=== PATIENT | female | born 1950 | race Caucasian/White ===

== ENCOUNTER → 2016-12-22 | Outpatient (CLI) | payer BC ==
[~2016-12-22] MED LIST: ASPEC81 PO; CLB200 PO; FENO48TA9 PO; FINA5TAB PO; GLC500 PO; MOME50SP5; NIAC250T8 PO; OLOP0.1S2 OP; PANT40TA PO; SERT50TA PO; SIMV40TA2 PO; SYN100 PO
--- NOTE | 2016-12-22 07:58 | DIAGNOSTIC IMAGING REPORT ---
ABDOMINAL ULTRASOUND, RIGHT UPPER QUADRANT HISTORY: Pain. Nausea. RUQ PAIN, DYSPEPSIA. COMPARISON: None. FINDINGS: Pancreas: The pancreas demonstrates a normal echotexture. Liver: Mild fatty infiltration Gallbladder: No gallbladder wall thickening. No gallstones. CBD: 4 mm Right kidney: No hydronephrosis. IMPRESSION: Mild fatty infiltration of liver. Otherwise negative study Electronically signed by: Rojelio Hallman M.D. 12/22/2016 7:56 AM Dictated Date/Time: 12/22/2016 7:56 AM
== END | disposition home or self-care (01) ==
LOC: C.ULTRBC 07:15
PROVIDERS: ATTEND Family Medicine
DX: R10.13 Epigastric pain (principal); R10.11 Right upper quadrant pain

== ENCOUNTER → 2017-01-12 | Outpatient (CLI) | payer BC ==
--- NOTE | 2017-01-12 15:30 | DIAGNOSTIC IMAGING REPORT ---
RIGHT KNEE 2 VIEWS CLINICAL HISTORY: Right knee pain and swelling. FINDINGS: AP and lateral views of the right knee are compared to study dated 08/05/2008. The skeletal structures are osteopenic. No fracture is seen. There is mild to moderate tricompartmental degenerative joint space narrowing, greatest at the patellofemoral articulation. There is degenerative beaking of the tibial spine and lateral marginal osteophytes. There are also tiny patellar enthesophytes. A joint effusion is identified. Mild soft tissue swelling is present around the knee. IMPRESSION: 1. Mild soft tissue swelling and joint effusion. No acute bony abnormality is seen. 2. Osteopenia and degenerative change as above. Electronically signed by: Juan C Limon M.D. 01/12/2017 3:29 PM Dictated Date/Time: 01/12/2017 3:27 PM
== END | disposition home or self-care (01) ==
LOC: C.RADBC 15:04
PROVIDERS: ATTEND Family Medicine
DX: M25.561 Pain in right knee (principal); M25.461 Effusion, right knee; M85.861 Other specified disorders of bone density and structure, right lower leg

== ENCOUNTER → 2017-03-06 | Outpatient (CLI) | payer BC ==
--- NOTE | 2017-03-06 14:55 | MAMMOGRAPHY REPORT ---
BILATERAL DIGITAL SCREENING MAMMOGRAM WITH CAD: 03/06/2017 CLINICAL HISTORY: Routine screening. Patient has no complaints. TECHNIQUE: Bilateral CC and MLO views were obtained. Current study was also evaluated with a Compute r Aided Detection (CAD) system. COMPARISON: Comparison is made to exams dated: 03/03/2016 mammogram, 03/02/2015 mammogram, 02/27/2014 m ammogram, 02/18/2013 mammogram, 01/23/2012 mammogram, and 07/27/2011 mammogram - [facility] ter. BREAST COMPOSITION: The tissue of both breasts is heterogeneously dense, which may obscure small mas ses. FINDINGS: The parenchymal pattern is unchanged. There are a few scattered stable benign-appearing m icrocalcifications and benign rim calcifications in the breasts. No developing mass, architectural d istortion or cluster of suspicious microcalcifications is seen in either breast. IMPRESSION: ACR BI-RADS CATEGORY 2: BENIGN There is no mammographic evidence of malignancy. A 1 year screening mammogram is recommended. The pa tient will receive written notification of the results. Approximately 10% of breast cancers are not detected with mammography. A negative mammographic report should not delay biopsy if a clinically suggestive mass is present. Itzel Dobbins M.D. ay/:03/06/2017 11:59:03 Hands Assembler: Jeannie Berumen, [facility] letter sent: Normal 1/2 BI-RADS Code: ACR BI-RADS Category 2: Benign
== END | disposition home or self-care (01) ==
LOC: C.MAMM 11:38
PROVIDERS: ATTEND Obstetrics & Gynecology
DX: Z12.31 Encounter for screening mammogram for malignant neoplasm of breast (principal)

== ENCOUNTER → 2017-07-04 | Outpatient (CLI) | payer BC ==
[~2017-07-04] MED LIST changes: +OPTIRAY 320 IV PRN
[2017-07-04 17:59] LABS: ISTAT CREATININE 0.8 mg/dl (0.6-1.3); ISTAT IONIZED CALCIUM 1.01 mmol/l (1.12-1.32)
--- NOTE | 2017-07-04 19:44 | DIAGNOSTIC IMAGING REPORT ---
ABD/PELVIS IV AND ORAL CONT HISTORY: 66 years-old Female RLQ PAIN acute right lower quadrant abdominal pain. Initial exam. COMPARISON: CT 04/06/2012 TECHNIQUE: Multiple axial CT images of the abdomen and pelvis were obtained following the intravenous administration of 116 mL Optiray 320. Oral contrast also administered. A dose lowering technique was used consistent with the principals of SIS. FINDINGS: Mild subsegmental bibasilar atelectasis. No pneumoperitoneum then at 5. Imaged inferior cardiac chambers are mildly enlarged. The liver, spleen, pancreas and adrenal glands are within normal limits. Low attenuating lesions of the bilateral kidneys are again seen suggesting cysts, largest of which measures 1.9 cm on the left. Findings appear unchanged. No renal calculi or hydronephrosis. The ureters, urinary bladder, uterus and adnexa are unremarkable. No significant free pelvic fluid. There is mild mixed plaquing of the abdominal aorta. No bulky retroperitoneal adenopathy. There is no bowel obstruction. Small duodenal diverticulum. A few scattered colonic diverticula are noted without CT evidence of acute diverticulitis. The appendix is tortuous within the abdominal right lower quadrant and is partially air and contrast-filled without inflammatory changes to suggest acute appendicitis. Small fat filled periumbilical hernia, diastases 1.6 cm. Bones appear intact. Facet arthropathy of the lower lumbar spine. IMPRESSION: 1. No acute intra-abdominal or intrapelvic abnormality identified, specifically no evidence of acute appendicitis. 2. Colonic diverticulosis without diverticulitis. 3. Additional incidental findings as above. The above report was generated using voice recognition software. It may contain grammatical, syntax or spelling errors. Electronically signed by: Miguelito Grossman M.D. 07/04/2017 7:43 PM Dictated Date/Time: 07/04/2017 7:35 PM
== END | disposition home or self-care (01) ==
LOC: C.CTS 17:05
PROVIDERS: ATTEND Family Medicine
DX: K57.30 Diverticulosis of large intestine without perforation or abscess without bleeding (principal)

== ENCOUNTER → 2017-08-02 | Outpatient (CLI) | payer BC ==
[~2017-08-02] MED LIST changes: -OPTIRAY 320 IV PRN
== END | disposition home or self-care (01) ==
LOC: C.PAPS 10:28
PROVIDERS: ATTEND Obstetrics & Gynecology
DX: Z01.419 Encounter for gynecological examination (general) (routine) without abnormal findings (principal)

== ENCOUNTER → 2017-10-02 | Outpatient (CLI) | payer OTHER ==
[2017-10-02 17:01] LABS: BASO % 0.5 %; BASO ABS # 0.04 K/uL (0-0.2); EOS % 1.6 %; EOS ABS # 0.12 K/uL (0-0.5); HEMOGLOBIN 12.8 g/dL (12.0-16.0); IG# 0.01 K/uL (0.00-0.02); LYMPH % 38.3 %; LYMPH ABS # 2.81 K/uL (1.2-3.4); MEAN CELL VOLUME 89.2 fL (80-100); MEAN CORPUSCULAR HGB CONC 33.7 g/dl (32-36); MEAN PLATELET VOLUME 12.9 fL (7.4-10.4); MONO % 8.7 %; MONO ABS # 0.64 K/uL (0.11-0.59); NEUT % 50.8 %; NEUT ABS # 3.72 K/uL (1.4-6.5); PLATELET COUNT 247 K/uL (130-400); RED CELL DISTRIBUTION WIDTH CV 13.5 % (11.5-14.5); WHITE BLOOD COUNT 7.34 K/uL (4.8-10.8)
[2017-10-02 17:21] LABS: ALBUMIN 3.9 gm/dl (3.4-5.0); ALT/SGPT 38 U/L (12-78); AST/SGOT 30 U/L (15-37); BLOOD UREA NITROGEN 13 mg/dl (7-18); CALCIUM 9.6 mg/dl (8.5-10.1); CARBON DIOXIDE 28 mmol/L (21-32); CHOLESTEROL 165 mg/dl (0-200); CREATININE 0.67 mg/dl (0.60-1.20); GLUCOSE 94 mg/dl (70-99); POTASSIUM 4.4 mmol/L (3.5-5.1); SODIUM 139 mmol/L (136-145); URIC ACID 5.1 mg/dl (2.6-7.2)
[2017-10-02 17:28] LABS: HEMOGLOBIN A1C 5.9 % (4.5-5.6)
[2017-10-02 17:29] LABS: ALKALINE PHOSPHATASE 105 U/L (45-117); LDL CHOLESTEROL CALCULATED 92 mg/dl; TOTAL PROTEIN 7.6 gm/dl (6.4-8.2); TRANSFERRIN 296 mg/dl (200-360)
== END | disposition home or self-care (01) ==
LOC: C.LABBC 12:58
PROVIDERS: ATTEND Family Medicine
DX: E88.81 Metabolic syndrome and other insulin resistance (principal); E55.9 Vitamin D deficiency, unspecified; D51.9 Vitamin B12 deficiency anemia, unspecified; E78.9 Disorder of lipoprotein metabolism, unspecified; R53.83 Other fatigue

== ENCOUNTER 2025-08-12 17:46 | Observation (INO) ==
--- NOTE | 2025-08-12 18:24 | Emergency Department Note ---
Impression & Plan Weakness, Elevated troponin, Palpitations, SOB (shortness of breath), CHF (congestive heart failure) ED Provider Note NAME: SATHISH BALL AGE: 75 SEX: F : 1950 ARRIVES VIA: Walk-In INFORMANT: [Patient] ED PROVIDER(S): [Juan C Jaeger MD] CHIEF COMPLAINT: Abnormal outpatient testing HISTORY OF PRESENT ILLNESS: The patient is a 75-year-old female who states that she has a history of intermittent atrial fibrillation. She is on Eliquis. She has been having episodes over the last week or so where her heart has been racing and, the episodes are becoming more frequent. When they occur, she feels sweaty, dizzy and has some mild discomfort across the chest. She has felt short of breath lately as well especially with stairs. She has been nauseated and has been feeling dizzy. She is quite fatigued. The patient saw cardiology last week and had her metoprolol changed to a long- acting dose. She states that today, she saw her family doctor's office and had outpatient laboratory work done. She was told that she was in heart failure, had an elevated troponin and elevated BNP. She was referred to the hospital. Laboratory work today outpatient showed a white count of 9.5. A hemoglobin of 11.6. A platelet count of 189. D-dimer was normal at 400. There was no renal failure or significant electrolyte abnormality. No concerning liver enzyme elevation. Troponin was elevated at 49.4. BNP was elevated at 478. TSH was normal. Chest x-ray was read showing heart failure. PMHx/PSHx/Social Hx: See Below PHYSICAL EXAM: GENERAL: Patient is in no acute distress. HEENT: No acute trauma, normocephalic atraumatic, mucous membranes moist, no nasal congestion. NECK: No stridor, no adenopathy, no meningismus, trachea is midline. LUNGS: Few scattered crackles heard at the right base. No respiratory distress or wheezing. HEART: Subtle systolic murmur heard best at the right sternal border. Regular rate and rhythm. ABDOMEN: Soft, nontender, no peritonitis. EXTREMITIES: No cyanosis, full range of motion of all the joints without pain or difficulty. NEUROLOGIC: Oriented x 3, no acute motor or sensory deficits, no focal weakness. SKIN: No jaundice, no diaphoresis. DIFFERENTIAL DIAGNOSIS: MN, dysrhythmia, CHF, electrolyte imbalance, renal or liver failure, among others. EMERGENCY DEPARTMENT PROCEDURES: MEDICAL DECISION MAKING: I did review the laboratory work that was performed outpatient earlier--these tests are noted in the above history section. There was no concerning anemia. D-dimer was normal making PE less likely. There was no renal failure or significant electrolyte abnormality. No worrisome liver enzyme elevation. BNP was elevated at over 400 consistent with fluid overload and heart failure. Troponin was mildly elevated consistent with cardiac injury/strain. TSH was normal. The chest x-ray did show moderate heart failure. Additional testing was done here in the ED. Repeat troponin did show a slight rise to 55.3. Her magnesium returned normal. ECG showed a normal sinus rhythm with LVH. No ST elevation. Given the patient's palpitations, her dyspnea, her fatigue, the new findings of heart failure and the elevated troponin, admission is warranted. I did order for IV Lasix 40 mg. This should help with diuresis. I spoke with the patient at length, I spoke with case management, the on-call hospitalist was consulted. Prior/Outside records/notes reviewed: None ECG per my interpretation: Indication was palpitations and shortness of b reath. The ECG shows a normal sinus rhythm with a rate of 80. LVH is present. There are some inverted T waves seen in the lateral leads. There is no ST elevation, no PVCs. The QTc is 426. Continuous Cardiac Monitoring per my interpretation: An order was placed for continuous cardiac monitoring. The monitor shows a rate of 82 with normal sinus rhythm. Imaging/x-ray results per my interpretation: Chest x-ray from earlier today shows some mild cardiomegaly as well as moderate CHF. No pneumonia. Chronic Medical/Social conditions affecting care: Advanced age. Care/Management discussed with: Case management and the on-call hospitalist. Level of care consideration(s): After review of the information above and other included data: --I believe the patient requires escalation of care to admission DISPOSITION: Admission Past Med/Surg History Problem List CHF (congestive heart failure) (Acute) SOB (shortness of breath) (Acute) Palpitations (Acute) Elevated troponin (Acute) Weakness (Acute) Cardiomyopathy Ingrowing toenail of right foot Ingrowing left great toenail Posterior tibial tendon dysfunction (PTTD) of both lower extremities Pes planus of both feet Myalgia Spinal stenosis of cervical region Cervical disc disease Metatarsalgia Paroxysmal atrial fibrillation Shoulder pain Hypertrophic cardiomyopathy Encounter for interrogation of cardiac recorder Impaired glucose tolerance GERD (gastroesophageal reflux disease) Radicular pain of upper extremity Elevated troponin Diabetes Tachycardia Cervical radiculopathy Bilateral shoulder pain Alopecia Rotator cuff arthropathy UTI (urinary tract infection) Paresthesia and pain of both upper extremities Arthralgia Postmenopausal syndrome Arthritis of hand Low vitamin B12 level CMC arthritis Tendinitis of left rotator cuff Dysphagia Synovitis and tenosynovitis Iliotibial band syndrome, right leg Left rotator cuff tear Arthritis Fatty liver GERD (gastroesophageal reflux disease) Hypothyroidism Hypercholesterolemia Mitral regurgitation Hypertension Apical variant hypertrophic cardiomyopathy Back pain Medical History Diverticulitis Eustachian tube dysfunction Bronchitis Diverticulitis large intestine Left ventricular hypertrophy Mammogram abnormal Anemia Abnormal EKG Surgical History History of adenoidectomy H/O tubal ligation S/P tonsillectomy H/O: hysterectomy H/O bilateral salpingo-oophorectomy Hx of cataract surgery Family History Aunt Colorectal cancer Ovarian cancer Father Colorectal cancer Sister Breast cancer Uterine cancer Father Bladder cancer Denies family history of Prostate cancer Dyslipidemia Myocardial infarction Lung cancer Hypertension Social History Smoking Status: Never smoker Second Hand Exposure: No; Do You Dip or Chew Tobacco: No; Tobacco Cessation Education Requested by Patient: No Hx Alcohol Use: No Hx Substance Use: No Preferred Language: Tamaz[place] Communication Ability: Effective Visual Impairment: No Limitations Hearing Ability: Normal Academic Intern Required: No Beliefs That Will Affect Care: None marital status: Current Living Situation: Spouse current occupational status: other current occupation: homemaker Other Information That Helps Us Care for You: No Feels Safe at Home: Yes Safety Concerns: Feels Safe At This Time Dental Care, Regularly: Yes Physical Activity Frequency: 3-4 Times per Week Seatbelt Use: always Assistive Devices: Glasses Allergies Allergies Allergy/AdvReac Type Severity Reaction Status Date / Time fexofenadine Allergy Mild INSOMNIA Verified 08/12/25 09:41 prednisone Allergy Unknown UNKNOWN Verified 08/12/25 09:41 rofecoxib Allergy Unknown UNKNOWN Verified 08/12/25 09:41 polyethylene glycol 3350 AdvReac Unknown Abdominal Verified 08/12/25 09:41 [From Miralax] Pain empagliflozin AdvReac Dizziness Verified 08/12/25 09:41 [From Jardiance] Home Meds Home Medications Medication Instructions Recorded Confirmed coQ10 (ubiquinol) 100 mg capsule 100 mg PO DAILY 12/29/21 08/12/25 Lactobacillus acidophilus 0 mg PO BID 02/08/23 08/12/25 [Probiotic] ascorbic acid (vitamin C) 500 mg 500 mg PO DAILY 02/08/23 08/12/25 tablet (Vitamin C) mecobalamin (vitamin B12) 1,000 1,000 mcg sublingual DAILY 08/08/23 08/12/25 mcg disintegrating tablet,sublingual fluticasone propionate 50 1 spray intranasal DAILY PRN 02/09/24 08/12/25 mcg/actuation nasal Congestion spray,suspension (Allergy Relief (fluticasone)) metoprolol tartrate 25 mg tablet 25 mg PO BID 08/12/25 08/12/25 Previous Rx's Medication Instructions Recorded famotidine 20 mg tablet 20 mg PO DAILY #90 tabs 07/02/24 apixaban 5 mg tablet (Eliquis) 5 mg PO BID #180 tabs 12/02/24 atorvastatin 10 mg tablet 10 mg PO DAILY #90 tabs 01/30/25 ergocalciferol (vitamin D2) 1,250 1,250 mcg PO .once weekly 90 days 01/30/25 mcg (50,000 unit) capsule (Vitamin #12 caps D2) levothyroxine 100 mcg tablet 100 mcg PO DAILY #90 tabs 01/30/25 metformin 500 mg tablet 500 mg PO BID #180 tabs 04/21/25 finasteride 5 mg tablet (Proscar) 5 mg PO DAILY #90 tabs 07/23/25 Results & Data (ED) Vital Signs Vital Signs - 24 hr 08/12/25 17:51 Temperature 36.5 C Temperature Source Skin Pulse Rate 82 Respiratory Rate 20 Blood Pressure 155/82 H Blood Pressure Mean 106 Pulse Oximetry 99 Sepsis Recent Fever Within 48 Hours No Sepsis New/Unexplained Change in Mental Status N/A Sepsis Action Taken by Nursing No Action Required Home Medications Current Medication List: was personally reviewed by me Laboratory Data Attestation: I reviewed the patient's lab results. Lab Results 08/12/25 Range/Units 18:12 Magnesium 1.7 (1.7-2.4) mg/dl Troponin I High Sens 55.3 H* (0-14) pg/ml Administered Medications Apixaban (Apixaban 5 Mg Tablet) 5 mg PO BID CHARLY Stop: 09/11/25 20:59 Last Admin: 08/12/25 21:26 Dose: 5 mg Documented By: MALGORZATA Discontinued Medications Furosemide (Furosemide 40 Mg/4 Ml Vial) 40 mg IV ONE ONE Stop: 08/12/25 18:18 Last Admin: 08/12/25 18:57 Dose: 40 mg Documented By: BREONNA Discharge Plan Visit Data Chief Complaint: Arrhythmia/Palpitations Stated Complaint: HEART PALPITATIONS, REF BY ED Provider: Juan C Jaeger Discharge Problem: Weakness, Elevated troponin, Palpitations, SOB (shortness of breath), CHF (congestive heart failure) Patient Disposition: Admitted As Inpatient Condition: Fair Discharge Instructions Interventions: ED Discharge Assessment Last Done: 08/12/25 19:53 Discharge Problem: CHF (congestive heart failure) Qualifiers: Heart failure type: unspecified Heart failure chronicity: acute Qualified Code(s): I50.9 - Heart failure, unspecified
[2025-08-12 18:42] LABS: Magnesium 1.7 mg/dl (1.7-2.4)
--- NOTE | 2025-08-12 18:45 | History & Physical Report ---
Date of Service August 12, 2025 Assessment & Plan (1) CHF (congestive heart failure): (2) Hypertrophic cardiomyopathy: (3) Diabetes: Plan SOB on eertion in a 75 yo female with PMH of hypertrophic cardiomypathy Likely secondary to acute CHF. Will obtain an echo. will place on IV lasix. WIll monitor renal function. will monitor BNP and trop. add lisinopril Diabetes Mellitus type 2 A1c appears controlled. will monitor, will hold insulin dyslipidemia placed on statin A fib Rate controlled. on apixaban will continue. History of Present Illness Chief Complaint: SOB Primary Care Provider: Jorge A Schroeder MD 75 yo fe,mitch with apical variant hypertrophic cardiomyopathy, dyslipidemia, Diabetes Mellitus Type 2, GERD presents to the ED with over 1 week history of SOB upon exertion. She mainly noticed this when she was ambulating up a flight of stairs. This would be accompanied by palpitations later iin the week. She noticed her SOB was slowly getting worse, this was accompanied by fatigue. Patient was seen by her PCP and was told to come to the ED for possible CHF. Allergies Allergy/AdvReac Type Severity Reaction Status Date / Time fexofenadine Allergy Mild INSOMNIA Verified 08/12/25 09:41 prednisone Allergy Unknown UNKNOWN Verified 08/12/25 09:41 rofecoxib Allergy Unknown UNKNOWN Verified 08/12/25 09:41 polyethylene glycol 3350 AdvReac Unknown Abdominal Verified 08/12/25 09:41 [From Miralax] Pain empagliflozin AdvReac Dizziness Verified 08/12/25 09:41 [From Jardiance] Home Medications Medication Instructions Recorded Confirmed Type coQ10 (ubiquinol) 100 mg capsule 100 mg PO DAILY 12/29/21 08/12/25 History Lactobacillus acidophilus 0 mg PO BID 02/08/23 08/12/25 History [Probiotic] ascorbic acid (vitamin C) 500 mg 500 mg PO DAILY 02/08/23 08/12/25 History tablet (Vitamin C) mecobalamin (vitamin B12) 1,000 1,000 mcg sublingual DAILY 08/08/23 08/12/25 History mcg disintegrating tablet,sublingual fluticasone propionate 50 1 spray intranasal DAILY PRN 02/09/24 08/12/25 History mcg/actuation nasal Congestion spray,suspension (Allergy Relief (fluticasone)) famotidine 20 mg tablet 20 mg PO DAILY #90 tabs 07/02/24 08/12/25 Rx apixaban 5 mg tablet (Eliquis) 5 mg PO BID #180 tabs 12/02/24 08/12/25 Rx atorvastatin 10 mg tablet 10 mg PO DAILY #90 tabs 01/30/25 08/12/25 Rx ergocalciferol (vitamin D2) 1,250 1,250 mcg PO .once weekly 90 days 01/30/25 08/12/25 Rx mcg (50,000 unit) capsule (Vitamin #12 caps D2) levothyroxine 100 mcg tablet 100 mcg PO DAILY #90 tabs 01/30/25 08/12/25 Rx metformin 500 mg tablet 500 mg PO BID #180 tabs 04/21/25 08/12/25 Rx finasteride 5 mg tablet (Proscar) 5 mg PO DAILY #90 tabs 07/23/25 08/12/25 Rx metoprolol tartrate 25 mg tablet 25 mg PO BID 08/12/25 08/12/25 History Past Med/Surg History Problem List (Updated 08/13/25 @ 10:50 by BEENA Dill) NATH (dyspnea on exertion) CHF (congestive heart failure) (Acute) SOB (shortness of breath) (Acute) Palpitations (Acute) Elevated troponin (Acute) Weakness (Acute) Cardiomyopathy Ingrowing toenail of right foot Ingrowing left great toenail Posterior tibial tendon dysfunction (PTTD) of both lower extremities Pes planus of both feet Myalgia Spinal stenosis of cervical region Cervical disc disease Metatarsalgia Paroxysmal atrial fibrillation Shoulder pain Hypertrophic cardiomyopathy Encounter for interrogation of cardiac recorder Impaired glucose tolerance GERD (gastroesophageal reflux disease) Radicular pain of upper extremity Elevated troponin Diabetes Tachycardia Cervical radiculopathy Bilateral shoulder pain Alopecia Rotator cuff arthropathy UTI (urinary tract infection) Paresthesia and pain of both upper extremities Arthralgia Postmenopausal syndrome Arthritis of hand Low vitamin B12 level CMC arthritis Tendinitis of left rotator cuff Dysphagia Synovitis and tenosynovitis Iliotibial band syndrome, right leg Left rotator cuff tear Arthritis Fatty liver GERD (gastroesophageal reflux disease) Hypothyroidism Hypercholesterolemia Mitral regurgitation Hypertension Apical variant hypertrophic cardiomyopathy Back pain Medical History Diverticulitis Eustachian tube dysfunction Bronchitis Diverticulitis large intestine Left ventricular hypertrophy Mammogram abnormal Anemia Abnormal EKG Surgical History History of adenoidectomy H/O tubal ligation S/P tonsillectomy H/O: hysterectomy H/O bilateral salpingo-oophorectomy Hx of cataract surgery Family History Aunt Colorectal cancer Ovarian cancer Father Colorectal cancer Sister Breast cancer Uterine cancer Father Bladder cancer Denies family history of Prostate cancer Dyslipidemia Myocardial infarction Lung cancer Hypertension Social History Smoking Status: Never smoker Second Hand Exposure: No; Do You Dip or Chew Tobacco: No; Tobacco Cessation Education Requested by Patient: No Hx Alcohol Use: No Hx Substance Use: No Preferred Language: Yakut Communication Ability: Effective Visual Impairment: No Limitations Hearing Ability: Normal Fitting Room Supervisor Required: No Beliefs That Will Affect Care: None marital status: Current Living Situation: Spouse current occupational status: other current occupation: homemaker Other Information That Helps Us Care for You: No Feels Safe at Home: Yes Safety Concerns: Feels Safe At This Time Dental Care, Regularly: Yes Physical Activity Frequency: 3-4 Times per Week Seatbelt Use: always Assistive Devices: None Review of Systems Constitutional: + body aches and + fatigue; no fever Eyes: no blind spots Ear, Nose, Mouth, Throat: no ear pain Respiratory: + dyspnea Cardiovascular: no chest pain Gastrointestinal: no abdominal pain Genitourinary: no dysuria Musculoskeletal: + joint pain Integumentary: no acne Neurologic: no gait abnormality Psychiatric: no behavioral changes Endocrine: + fatigue Hematologic / Lymphatic: no easy bleeding Allergy / Immunological: no GI upset with certain foods Physical Exam Constitutional: WD/WN, vitals as above Eyes: PERRL, conjunctivae normal, anicteric sclerae ENMT: external ear and nose normal, oropharynx normal Neck: trachea midline, no thyromegaly Respiratory: + uses accessory muscles; no respiratory distress Auscultation: + rales Cardiovascular: Rate/Rhythm: + tachycardic Heart Sounds: normal S1 and normal S2 Gastrointestinal (Abdomen): normal bowel sounds, soft, nontender, no hepatosplenomegaly Musculoskeletal: no cyanosis or clubbing, extremities motor strength 5/5 Skin: no rashes, warm and dry Neurologic: PERRL, EOMI, accommodation nl, no face palsy, no dysarthria Psychiatric: A+Ox3, euthymic affect Lymphatic: no cervical or axillary lymphadenopathy Results & Data Results & Data Vital Signs (Past 12 Hours) Vital Signs Temp Pulse Resp BP Pulse Ox 08/12/25 18:40 80 08/12/25 17:51 36.5 C 82 20 155/82 H 99 PG Care Time/CCT Total # of Minutes Spent Total Time Spent with Patient: Total time spent is greater than 50% in coordination of care (as documented) at patient's floor/unit and/or counseling patient: Coding Level of Care Code 33610 INT INP/OBS CARE 375MIN Diagnoses CHF (congestive heart failure) I50.9 Heart failure chronicity: acute Heart failure type: unspecified Hypertrophic cardiomyopathy I42.2 Diabetes E11.9 (1) CHF (congestive heart failure) Heart failure chronicity: acute Heart failure type: unspecified Qualified Code(s): I50.9 - Heart failure, unspecified
[2025-08-12] MEDS: FUROSEMIDE 40 MG/4 ML VIAL IV ONE (18:57)
[2025-08-12] MEDS: APIXABAN 5 MG TABLET PO SCH (21:26)
[2025-08-12] MEDS ORDERED: INFLUENZA VACC TS2025-26(65y+)/PF (IIV3) 0.5mL Syr IM ONE (22:22)
[2025-08-13] MEDS: LEVOTHYROXINE SODIUM 100 MCG TABLET PO SCH (06:25)
[2025-08-13 07:08] LABS: Hematocrit (blood only) 35.1 % (37.0-47.0); Hemoglobin 12.2 g/dL (12.0-16.0); Mean Corpuscular Hemoglobin 30.3 pg (25.0-34.0); Mean Corpuscular Volume 87.3 fL (80.0-100.0); Platelet Count 208 K/uL (130-400); RDW Standard Deviation 43.0 fL (36.4-46.3); Red Blood Count 4.02 M/uL (4.20-5.40); White Blood Count 9.35 K/ul (4.8-10.8)
[2025-08-13 07:25] LABS: Anion Gap 9.0 (3-11); Blood Urea Nitrogen 9.0 mg/dl (6-23); Calcium 9.3 mg/dl (8.6-10.3); Carbon Dioxide 28.0 mmol/L (21-32); Chloride 101.0 mmol/L (98-107); Creatinine Clr Calc Pharmacy 60.1 ml/min; Glucose 100.0 mg/dl (70-99(Fasting)); Potassium 3.5 mmol/L (3.5-5.1); Sodium 138.0 mmol/L (136-145)
[2025-08-13] MEDS: CYANOCOBALAMIN (B-12) 500 MCG TABLET PO SCH (08:36)
[2025-08-13] MEDS: ATORVASTATIN 10 MG TAB PO SCH (08:37)
[2025-08-13] MEDS: ASCORBIC ACID 500 MG TAB PO SCH (08:37)
[2025-08-13] MEDS: METOPROLOL SUCC 25MG EXT REL TAB PO SCH (08:38)
[2025-08-13] MEDS: ASPIRIN 81 MG ECTAB PO SCH (08:38)
[2025-08-13] MEDS: FUROSEMIDE 40 MG/4 ML VIAL IV SCH (08:38)
[2025-08-13] MEDS: FAMOTIDINE 20 MG TAB PO SCH (08:40)
[2025-08-13] MEDS: SODIUM CHLORIDE 0.65% NA SOLN 45 ML (OCEAN) PRN (08:40)
[2025-08-13] MEDS ORDERED: FINASTERIDE 5 MG TAB PO SCH (09:00)
--- NOTE | 2025-08-13 10:33 | XCELERA ---
[id number]
--- NOTE | 2025-08-13 10:40 | Cardiology Consultation ---
Date of Consultation August 13, 2025 Assessment & Plan (1) Elevated troponin: (2) NATH (dyspnea on exertion): (3) CHF (congestive heart failure): (4) Apical variant hypertrophic cardiomyopathy: (5) Paroxysmal atrial fibrillation: Plan Elevated troponin - Very mild elevation; 54.5 peak - No obvious concerns for ischemia at this time. - likely secondary to heart failure exacerbation NATH; improved Acute diastolic CHF exacerbation Apical variant hypertrophic cardiomyopathy - Echo from today reflecting severe concentric LVH consistent with known apical variant hypertrophic cardiomyopathy. Ejection fraction 60 to 65%. - Continue with IV diuretics. Upon discharge, would consider a few days worth of PO lasix to take prn until she sees her ink printer in [place]. - Potassium is borderline, supplementation ordered - Monitor renal function and lytes. - Track accurate I/O. Perform daily weights. - Consider repeat CXR Paroxysmal A-fib - Continue with metoprolol succinate 75 mg daily - Continue Eliquis 5 mg twice daily Supervising Physician Co-Signing Physician Notes I saw and examined the patient and agree with the documentation by BEENA Gandhi. Briefly, the patient has a known history of apical variant hypertrophic cardiomyopathy. She is also known to have paroxysmal atrial fibrillation. Transmitted recording from her implanted monitor have suggested that she is having more atrial fibrillation lately. Rate control medications have been escalated in attempt to reduce symptoms and achieve better heart rates while in atrial fibrillation. She seems to have had some progressive edema, weight gain and likely an element of pulmonary vascular congestion recently. She did affect a good diuresis in the hospital is actually feeling better. I would agree with some scheduled diuretics at home. She can also monitor her weight and administer extra diuretics as needed. Will continue on her current dose of metoprolol succinate. She may require more aggressive treatment of her atrial fibrillation depending on her clinical course, frequency, duration of episodes and symptoms. She will continue systemic anticoagulation with apixaban. History of Present Illness Reason for Consultation: CHF Attending Physician: Kelton Rose History of Present Illness This is a 75-year-old female with a past medical history of apical variant hypertrophic cardiomyopathy, paroxysmal A-fib and hypertension. She initially saw me in the cardiology office earlier this week with a 3 day complaint of palpitations. She does have a loop recorder in which recordings were reviewed. She was having periods of atrial fibrillation over the last several weeks with average rates in the 90s. There were occasional episodes where she would experience RVR. She was transitioned from metoprolol to tartrate to metoprolol succinate at that point. An echocardiogram was ordered. Her plan was to follow up with her other ink printer in [place] the week of August. The day after her radiology appointment, she developed shortness of breath with exertion. The following day, she was completely winded after ascending a flight of steps. This prompted her to make an appointment with her PCP. Her PCP ord ered lab work and imaging. Her troponin was slightly elevated at 49.4. BNP was 478. CXR showed mild pulmonary congestion. Given these results, she was instructed to proceed to the ER. In the ER, her EKG reflected normal sinus rhythm with a rate of 80, LVH noted. There is no obvious ischemic or conduction concern. Her repeat HS troponin was 55.3. Per review of telemetry, she has remained in normal sinus rhythm with rates in the 70s during her hospital stay. She has been receiving IV diuretics and reports she has been urinating a lot. She denies any dizziness, near-syncope or syncope. She denies any recent chest discomfort. She denies any palpitations since her cardiology visit. She denies shortness of breath at rest. She now denies dypnea on exertion. No orthopnea. Denies lower extremity edema. Allergies Allergy/AdvReac Type Severity Reaction Status Date / Time fexofenadine Allergy Mild INSOMNIA Verified 08/12/25 09:41 prednisone Allergy Unknown UNKNOWN Verified 08/12/25 09:41 rofecoxib Allergy Unknown UNKNOWN Verified 08/12/25 09:41 polyethylene glycol 3350 AdvReac Unknown Abdominal Verified 08/12/25 09:41 [From Miralax] Pain empagliflozin AdvReac Dizziness Verified 08/12/25 09:41 [From Jardiance] Home Medications Medication Instructions Recorded Confirmed Type coQ10 (ubiquinol) 100 mg capsule 100 mg PO DAILY 12/29/21 08/12/25 History Lactobacillus acidophilus 0 mg PO BID 02/08/23 08/12/25 History [Probiotic] ascorbic acid (vitamin C) 500 mg 500 mg PO DAILY 02/08/23 08/12/25 History tablet (Vitamin C) mecobalamin (vitamin B12) 1,000 1,000 mcg sublingual DAILY 08/08/23 08/12/25 History mcg disintegrating tablet,sublingual fluticasone propionate 50 1 spray intranasal DAILY PRN 02/09/24 08/12/25 History mcg/actuation nasal Congestion spray,suspension (Allergy Relief (fluticasone)) famotidine 20 mg tablet 20 mg PO DAILY #90 tabs 07/02/24 08/12/25 Rx apixaban 5 mg tablet (Eliquis) 5 mg PO BID #180 tabs 12/02/24 08/12/25 Rx atorvastatin 10 mg tablet 10 mg PO DAILY #90 tabs 01/30/25 08/12/25 Rx ergocalciferol (vitamin D2) 1,250 1,250 mcg PO .once weekly 90 days 01/30/25 08/12/25 Rx mcg (50,000 unit) capsule (Vitamin #12 caps D2) levothyroxine 100 mcg tablet 100 mcg PO DAILY #90 tabs 01/30/25 08/12/25 Rx metformin 500 mg tablet 500 mg PO BID #180 tabs 04/21/25 08/12/25 Rx finasteride 5 mg tablet (Proscar) 5 mg PO DAILY #90 tabs 07/23/25 08/12/25 Rx furosemide 40 mg tablet (Lasix) 40 mg PO Q OTHER DAY #30 tabs 08/13/25 Rx metoprolol succinate 25 mg 75 mg (3 x 25 mg) PO QAM #30 tabs 08/13/25 Rx tablet,extended release 24 hr potassium chloride 10 mEq 10 meq PO Q OTHER DAY #30 caps 08/13/25 Rx capsule,extended release Patient History Medical History Diverticulitis Eustachian tube dysfunction Bronchitis Diverticulitis large intestine Left ventricular hypertrophy Mammogram abnormal Anemia Abnormal EKG Surgical History History of adenoidectomy H/O tubal ligation S/P tonsillectomy H/O: hysterectomy H/O bilateral salpingo-oophorectomy Hx of cataract surgery Family History Aunt Colorectal cancer Ovarian cancer Father Colorectal cancer Sister Breast cancer Uterine cancer Father Bladder cancer Denies family history of Prostate cancer Dyslipidemia Myocardial infarction Lung cancer Hypertension Social History Smoking Status: Never smoker Second Hand Exposure: No; Do You Dip or Chew Tobacco: No; Tobacco Cessation Education Requested by Patient: No Hx Alcohol Use: No Hx Substance Use: No Preferred Language: Yoruba Communication Ability: Effective Visual Impairment: No Limitations Hearing Ability: Normal Salon Supervisor Required: No Beliefs That Will Affect Care: None marital status: Current Living Situation: Spouse current occupational status: other current occupation: homemaker Other Information That Helps Us Care for You: No Feels Safe at Home: Yes Safety Concerns: Feels Safe At This Time Dental Care, Regularly: Yes Physical Activity Frequency: 3-4 Times per Week Seatbelt Use: always Assistive Devices: None Review of Systems Review of Systems: Per HPI Physical Exam Physical Exam: Physical Exam: Female sitting on edge of the bed. Well-groomed AOx3. Mood affect appear normal. All questions appropriately. HEENT: Sclerae are anicteric. Pupils are equal and reactive to light and accommodation. Extraocular movements were intact. Neuro: Cranial nerves intact Lungs: Lungs are clear to auscultation bilaterally. There are no rales wheezes or rhonchi. Normal respiratory effort without use of accessory muscles. Cardiac: The rhythm was regular. S1 and S2 were normal. There are no murmurs on examination. The PMI was not markedly displaced on palpation. Extremities: Patient has bilateral radial pulses that are equal in intensity. There is no evidence cyanosis or clubbing. There was no evidence of significant peripheral edema bilaterally. Skin: There are no rashes noted on examination today. Results & Data Vital Signs (Past 12 Hours) Vital Signs Temp Pulse Pulse Resp BP Pulse Ox O2 Del Method 08/13/25 09:58 75 08/13/25 07:54 36.6 C 80 16 144/84 H 94 Room Air 08/13/25 03:11 36.6 C 60 20 140/84 95 Room Air 08/12/25 22:33 36.6 C 80 18 144/78 H 94 Room Air PG Care Time/CCT Total # of Minutes Spent Total Time Spent with Patient: Total time spent is greater than 50% in coordination of care (as documented) at patient's floor/unit and/or counseling patient: Coding [place] [address] INT INP/OBS CARE 3/75MIN Patient Type Established Diagnoses Elevated troponin R79.89 NATH (dyspnea on exertion) R06.09 CHF (congestive heart failure) I50.9 Heart failure chronicity: acute Heart failure type: unspecified Apical variant hypertrophic cardiomyopathy I42.2 Paroxysmal atrial fibrillation I48.0 (3) CHF (congestive heart failure) Heart failure chronicity: acute Heart failure type: unspecified Qualified Code(s): I50.9 - Heart failure, unspecified
[2025-08-13] MEDS: POTASSIUM CHLORIDE CRTAB 20 MEQ TABCR PO ONE (12:34)
[2025-08-13 14:49] VITALS: PULSE 71; RESP 19; TEMP 97.5; O2SAT 95
--- NOTE | 2025-08-13 15:16 | XRay Report ---
XR chest 2V PA/lateral CLINICAL HISTORY: chf COMPARISON STUDY: 08/12/2025 FINDINGS: Stable cardiomegaly without pulmonary vascular congestion. No consolidation or pleural effu devi. No pneumothorax. IMPRESSION: No acute findings. Prior findings of CHF appear resolved. ACT 112: Negative or not required by law. Electronically signed by: Maximiliano Conti M.D. 08/13/2025 3:15 PM
[2025-08-13 15:55] LABS: Anion Gap 6.0 (3-11); Blood Urea Nitrogen 15.0 mg/dl (6-23); Calcium 9.9 mg/dl (8.6-10.3); Carbon Dioxide 34.0 mmol/L (21-32); Chloride 96.0 mmol/L (98-107); Creatinine Clr Calc Pharmacy 38.4 ml/min; Glucose 101.0 mg/dl (70-99(Fasting)); Potassium 4.1 mmol/L (3.5-5.1); Sodium 136.0 mmol/L (136-145)
--- NOTE | 2025-08-13 16:13 | Discharge Summary ---
Discharge Summary Date of Service August 13, 2025 Principal Dx & Hospital Course #1 = Principal Diagnosis (1) CHF (congestive heart failure): (2) Hypertrophic cardiomyopathy: (3) Diabetes: Plan SOB on exertion in a 75 yo female with PMH of apical variant hypertrophic cardiomyopathy Likely secondary to acute CHF. Echo confirmed diastolic dysfunction. Patient responded to IV lasix, she had Acute kiney injury on repeat lab check in afternoon. Patietn chest x ray also showed improvement. Will discharge her on her home meds amd will hold her lasix until Monday as her ASHANTI will subside by that time. add lisinopril Diabetes Mellitus type 2 A1c appears controlled. will resume home meds dyslipidemia placed on statin A fib Rate controlled. continue home meds on apixaban will continue. Admission HPI Per Admitting Provider 75 yo fe,mitch with apical variant hypertrophic cardiomyopathy, dyslipidemia, Diabetes Mellitus Type 2, GERD presents to the ED with over 1 week history of SOB upon exertion. She mainly noticed this when she was ambulating up a flight of stairs. This would be accompanied by palpitations later iin the week. She noticed her SOB was slowly getting worse, this was accompanied by fatigue. Patient was seen by her PCP and was told to come to the ED for possible CHF. Discharge Exam Constitutional WD/WN, vitals as above Eyes PERRL, conjunctivae normal, anicteric sclerae ENMT external ear and nose normal, oropharynx normal Neck trachea midline, no thyromegaly Respiratory no respiratory distress Auscultation: lungs clear to auscultation bilaterally Cardiovascular Rate/Rhythm: regular rate and + irregularly irregular Heart Sounds: normal S1 and normal S2 Gastrointestinal (Abdomen) normal bowel sounds, soft, nontender, no hepatosplenomegaly Musculoskeletal no cyanosis or clubbing, extremities motor strength 5/5 Skin no rashes, warm and dry Neurologic PERRL, EOMI, accommodation nl, no face palsy, no dysarthria Psychiatric A+Ox3, euthymic affect Lymphatic no cervical or axillary lymphadenopathy Discharge Plan Discharge Items Patient Disposition: Home - Self-Care Reason For Visit: CHF Discharge Diagnosis: CHF Condition on Discharge: Fair Activity: Resume your previous activity Non-emergency contact: Primary Care Provider Call non-emergency contact if: you have any medication questions Follow-up/Referrals: Jorge A Schroeder MD [Primary Care Provider] - Diet: Low Sodium (2gm) Addtl Attending Provider Instructions: Recommend followup with Dr. Schroeder within 1 week. Followup with your fusing furnace loader in [place] on Call 911 and go to the Emergency Room if: * You have tightness or pain in your chest that does not go away with rest or Nitroglycerin * You are very short of breath even with rest Call your doctor if any of the following symptoms or problems start or get worse: * Shortness of breath or difficulty breathing * Wake up at night short of breath * Chest pain * Cough * Swelling of your hands, fee, or legs * More fatigued or tired with your normal activity * Palpitations - sudden fast heart beats WEIGHT * Weigh yourself every morning after using the bathroom. * Use the same scale. * Wear the same amount of clothing. * Write your weight down on your chart. * Call your doctor if you gain more than 2-3 pounds in 1-2 days. MEDICATIONS * Use this discharge instruction sheet for instructions. * Take your medications at the time your doctor ordered. * Do not skip a dose of your medicines. * If you miss a dose of medicine, take as soon as possible, but DO NOT DOUBLE A DOSE. * Read your medicine information when you get home. * Know all of the side effects of your medicine. * Call your doctor's office if you have any side effects. * Be sure all of your doctors know what medicine and herbs you take (including cold, flu, and herbal medicine). * Pain Medicine: If you do not get relief from your pain, please call your doctor for help. Take the following with you to your follow-up doctor appointments: * Weight Chart * Medication List * List of questions Do not drink excessive alcohol, beer or wine. Pending Studies at Discharge: No Stand-Alone Forms: [facility] [place] Product[employer], Smoking Cessation Medications and DC Order Prescriptions: New metoprolol succinate 25 mg Tablet Extended Release 24 Hr 75 mg PO QAM Qty: 30 0RF furosemide [Lasix] 40 mg tablet 40 mg PO Q OTHER DAY Qty: 30 0RF Rx Instructions: start on Monday potassium chloride 10 mEq capsule, extended release 10 meq PO Q OTHER DAY Qty: 30 0RF Continued famotidine 20 mg tablet 20 mg PO DAILY Qty: 90 3RF Eliquis 5 mg tablet 5 mg PO BID Qty: 180 3RF atorvastatin 10 mg tablet 10 mg PO DAILY Qty: 90 3RF levothyroxine 100 mcg tablet 100 mcg PO DAILY Qty: 90 3RF metformin 500 mg tablet 500 mg PO BID Qty: 180 3RF finasteride [Proscar] 5 mg tablet 5 mg PO DAILY Qty: 90 3RF ascorbic acid (vitamin C) [Vitamin C] 500 mg tablet 500 mg PO DAILY Patient Comments: 08/12- otc unable to verify mecobalamin (vitamin B12) 1,000 mcg tablet,disintegrating 1,000 mcg sublingual DAILY Patient Comments: 08/12- otc unable to verify Rx Instructions: place tablet under tongue and allow to dissolve for at least30 secs before swallowing coQ10 (ubiquinol) 100 mg capsule 100 mg PO DAILY Patient Comments: 08/12- otc unable to verify Discontinued metoprolol tartrate 25 mg tablet 25 mg PO BID No Action ergocalciferol (vitamin D2) [Vitamin D2] 1,250 mcg (50,000 unit) capsule 1,250 mcg PO WK Rx Instructions: FRIDAYS Discharge Orders: Discharge Order- CHF (Routine); Ordered 08/13/25 Ordered By: Kelton Rose Admission Data Admit Date/Time: 08/12/25 18:29 Attending Provider: Kelton Rose Admit Provider: Kelton Rose Primary Care Provider: Jorge A Schroeder Other Providers: Anibal Walden Other Interventions: Discharge Summary Assessment (RN) Last Done: 08/13/25 18:05 Hospital Stay Data Consultations 08/12/25 18:18 ED Decision to Admit Stat 08/12/25 18:30 ED Decision to Admit Stat 08/12/25 18:36 Consult Cardiology Routine Discharge Instructions Given to Patient (Per Discharging Provider) Recommend followup with Dr. Schroeder within 1 week. Followup with your fusing furnace loader in [place] on Call 911 and go to the Emergency Room if: * You have tightness or pain in your chest that does not go away with rest or Nitroglycerin * You are very short of breath even with rest Call your doctor if any of the following symptoms or problems start or get worse: * Shortness of breath or difficulty breathing * Wake up at night short of breath * Chest pain * Cough * Swelling of your hands, fee, or legs * More fatigued or tired with your normal activity * Palpitations - sudden fast heart beats WEIGHT * Weigh yourself every morning after using the bathroom. * Use the same scale. * Wear the same amount of clothing. * Write your weight down on your chart. * Call your doctor if you gain more than 2-3 pounds in 1-2 days. MEDICATIONS * Use this discharge instruction sheet for instructions. * Take your medications at the time your doctor ordered. * Do not skip a dose of your medicines. * If you miss a dose of medicine, take as soon as possible, but DO NOT DOUBLE A DOSE. * Read your medicine information when you get home. * Know all of the side effects of your medicine. * Call your doctor's office if you have any side effects. * Be sure all of your doctors know what medicine and herbs you take (including cold, flu, and herbal medicine). * Pain Medicine: If you do not get relief from your pain, please call your doctor for help. Take the following with you to your follow-up doctor appointments: * Weight Chart * Medication List * List of questions Do not drink excessive alcohol, beer or wine. Total Time Total Time Spent Total Time Spent (In Minutes): 35 Spent over 30 minutes dicussing plan of care, examining patient, formulating discharge plan, discussing with specialists, patient encounter Coding Level of Care Code 65328 INP/OBS DISCH >30 MIN Diagnoses CHF (congestive heart failure) I50.9 Heart failure chronicity: acute Heart failure type: unspecified Hypertrophic cardiomyopathy I42.2 Diabetes E11.9
[2025-08-13 18:05] VITALS: BP 105/68
--- NOTE | 2025-08-13 18:48 | Electrocardiogram Report ---
Test Reason : Blood Pressure : */* mmHG Vent. Rate : 80 BPM Atrial Rate : 80 BPM P-R Int : 172 ms QRS Dur : 70 ms QT Int : 370 ms P-R-T Axes : 3 14 168 degrees QTcB Int : 426 ms Normal sinus rhythm Left ventricular hypertrophy with repolarization abnormality Abnormal ECG Confirmed by Anibal Walden ([id number]) on 08/13/2025 6:47:52 PM Referred By: Jorge A Schroeder Confirmed By: Anibal Walden
[2025-08-15] MEDS ORDERED: ERGOCALCIFEROL 1250 MCG (50,000 UNITS) CAP PO SCH (09:00)
== END 2025-08-13 18:44 | disposition home or self-care (01) | DRG 291 ==
LOC: SUATTDRO → ED 17:46 → INTOOBSV 18:29 → 2E 18:29

== ENCOUNTER 2025-08-16 01:49 | Observation (INO) ==
--- NOTE | 2025-08-16 02:03 | Emergency Department Note ---
Impression & Plan Atrial fibrillation with RVR, Hypomagnesemia, NATH (dyspnea on exertion) ED Provider Note CHIEF COMPLAINT: Shortness of breath HISTORY OF PRESENTING ILLNESS: The patient is a pleasant, 75-year-old female with past medical history of paroxysmal atrial fibrillation, currently on oral anticoagulation, who arrives to the emergency department for evaluation of palpitations, and shortness of breath. Patient reports symptoms began at approximately 0220 this evening. She states she does have a history of atrial fibrillation. She reports she takes anticoagulants, and does not miss doses. She states she is currently having no chest pain, dizziness, abdominal pain, nausea, or vomiting. She reports no recent illness. She is well-appearing, with tachycardia upon arrival, however otherwise stable vital signs. REVIEW OF SYSTEMS: See HPI for pertinent positives and pertinent negatives. ALLERGIES: See below MEDICATIONS: See below PAST MEDICAL HISTORY: See below PHYSICAL EXAM: VITALS: Vitals are noted on the nurse's note and reviewed by myself. Tachycardia, otherwise stable vital signs. GENERAL: 75-year-old female, in no acute distress, nondiaphoretic, well- developed well-nourished. SKIN: The skin was without rashes, erythema, edema, or bruising. HEAD: Normocephalic atraumatic. NECK: Supple without nuchal rigidity. No JVD. HEART: Irregular rate and rhythm without murmurs gallops or rubs. LUNGS: Clear to auscultation bilaterally without wheezes, rales or rhonchi. No retractions or accessory muscle use. ABDOMEN: Positive bowel sounds x 4. Soft, nontender, without masses or organomegaly. Vitale sign negative. No guarding or rebound tenderness. MUSCULOSKELETAL: No muscle atrophy, erythema, or edema noted. Normal gait. Strength 5/5 throughout. NEURO: Patient was alert and oriented to person place and time. No focal neurological deficits. DIFFERENTIAL DIAGNOSIS: Reactive airway disease, pneumonia, pneumothorax, COPD, CHF, infections, cardiac ischemia, arrhythmia, pulmonary embolism, musculoskeletal, gastrointestinal, as well as other pathologies. ED COURSE AND MEDICAL DECISION MAKING: HISTORY FROM INDEPENDENT HISTORIAN: at bedside serving as secondary historian. MEDICATIONS GIVEN: 1.5L NSS bolus, 5 mg IV metoprolol, x 2, 1 g IV magnesium MONITOR: Continuous surveillance system monitor: Order was placed for continuous surveillance system monitor. Patient was placed on the surveillance system monitor and continuous pulse ox. Patient was noted to be in Rapid A-fib at an initial rate of 128 bpm per my interpretation. EKG: EKG was interpreted by myself as A-fib with RVR, at a rate of 115 bpm, no ST elevation or depression. Previous for comparison from August 12, 2025 shows NSR. INTERPRETATION OF LABS: I interpreted the labs with full lab results as below in the lab section of this note. Pertinent lab results discussed in the MDM section below. INTERPRETATION OF IMAGING: Imaging studies were interpreted by myself and read by radiology as per the imaging section of this note. CHRONIC MEDICAL/SOCIAL CONDITIONS AFFECTING CARE: Paroxysmal atrial fibrillation MDM SUMMARY: The patient is a pleasant, 75-year-old female who arrives to the emergency department for evaluation of the above-stated complaint. Saline lock was established, cardiac workup was obtained. Lab work shows leukocytosis 10.89, no anemia. CMP shows elevated BUN 34, elevated troponin 20.9, repeat 30.3. Hypomagnesemia 1.6. TSH 3.474, upper respiratory viral panel negative. EKG per my interpretation interpreted as above. Chest x-ray imaging shows cardiomegaly, with no acute cardiopulmonary process. Patient was provided IV fluids, and 2 doses of IV metoprolol, without significant improvement in her heart rate. Patient currently takes metoprolol at home, she was recently switched from immediate release twice daily to extended release once daily. Patient was provided 1 g IV magnesium for hypomagnesemia. Patient remained persistently tachycardic while in the emergency department. Due to the persistent tachycardia, as well as the elevated troponin, that has continued to increase, with uncontrolled atrial fibrillation, I do believe the patient will require stay in the hospital. She was [facility] to [facility]. Please refer to their documentation for further patient workup and care. DIAGNOSIS: Hypomagnesemia, A-fib with RVR, NATH The patient's case was discussed with Dr. Shipley, who agreed with my evaluation and treatment plan. I have personally spent greater than 30 minutes of critical care time in the direct management of this patient. This includes bedside care, interpretation of diagnostic studies, and testing, discussion with consultants, patient, and family members, and other required patient management activities. This 30 minutes is in excess of all separately billable procedures. The chart was completed utilizing [employer] voice recognition software. Grammatical errors, random word insertions, pronoun errors, and incomplete sentences are an occasional consequence of this system due to software limitations, ambient noise, and hardware issues. Any formal questions or concerns about the content, text, or information contained within the body of this dictation should be directly addressed to the provider for clarification. Past Med/Surg History Problem List (Updated 08/22/25 @ 03:05 by BEENA Glass) Diastolic heart failure Atrial fibrillation with RVR (Acute) Hypomagnesemia (Acute) NATH (dyspnea on exertion) (Acute) CHF (congestive heart failure) (Acute) SOB (shortness of breath) (Acute) Palpitations (Acute) Elevated troponin (Acute) Weakness (Acute) Cardiomyopathy Ingrowing toenail of right foot Ingrowing left great toenail Posterior tibial tendon dysfunction (PTTD) of both lower extremities Pes planus of both feet Myalgia Spinal stenosis of cervical region Cervical disc disease Metatarsalgia Paroxysmal atrial fibrillation Shoulder pain Hypertrophic cardiomyopathy Encounter for interrogation of cardiac recorder Impaired glucose tolerance GERD (gastroesophageal reflux disease) Radicular pain of upper extremity Elevated troponin Diabetes Tachycardia Cervical radiculopathy Bilateral shoulder pain Alopecia Rotator cuff arthropathy UTI (urinary tract infection) Paresthesia and pain of both upper extremities Arthralgia Postmenopausal syndrome Arthritis of hand Low vitamin B12 level CMC arthritis Tendinitis of left rotator cuff Dysphagia Synovitis and tenosynovitis Iliotibial band syndrome, right leg Left rotator cuff tear Arthritis Fatty liver GERD (gastroesophageal reflux disease) Hypothyroidism Hypercholesterolemia Mitral regurgitation Hypertension Apical variant hypertrophic cardiomyopathy Back pain Medical History Diverticulitis Eustachian tube dysfunction Bronchitis Diverticulitis large intestine Left ventricular hypertrophy Mammogram abnormal Anemia Abnormal EKG Surgical History History of adenoidectomy H/O tubal ligation S/P tonsillectomy H/O: hysterectomy H/O bilateral salpingo-oophorectomy Hx of cataract surgery Family History Aunt Colorectal cancer Ovarian cancer Father Colorectal cancer Sister Breast cancer Uterine cancer Father Bladder cancer Denies family history of Prostate cancer Dyslipidemia Myocardial infarction Lung cancer Hypertension Social History Smoking Status: Never smoker Second Hand Exposure: No; Do You Dip or Chew Tobacco: No; Hx Alcohol Use: No Hx Substance Use: No Preferred Language: Greenlandic Communication Ability: Effective Visual Impairment: No Limitations Hearing Ability: Normal Neuro Psych Sales Specialist Required: No Beliefs That Will Affect Care: None marital status: Current Living Situation: Spouse current occupational status: other current occupation: homemaker Feels Safe at Home: Yes Dental Care, Regularly: Yes Physical Activity Frequency: 3-4 Times per Week Seatbelt Use: always Assistive Devices: Glasses Allergies Allergies Allergy/AdvReac Type Severity Reaction Status Date / Time fexofenadine Allergy Mild INSOMNIA Verified 08/20/25 14:16 prednisone Allergy Unknown UNKNOWN Verified 08/20/25 14:16 rofecoxib Allergy Unknown UNKNOWN Verified 08/20/25 14:16 polyethylene glycol 3350 AdvReac Unknown Abdominal Verified 08/20/25 14:16 [From Miralax] Pain empagliflozin AdvReac Dizziness Verified 08/20/25 14:16 [From Jardiance] Home Meds Home Medications Medication Instructions Recorded Confirmed coQ10 (ubiquinol) 100 mg capsule 100 mg PO DAILY 12/29/21 08/20/25 ascorbic acid (vitamin C) 500 mg 500 mg PO DAILY 02/08/23 08/20/25 tablet (Vitamin C) mecobalamin (vitamin B12) 1,000 1,000 mcg sublingual DAILY 08/08/23 08/20/25 mcg disintegrating tablet,sublingual ergocalciferol (vitamin D2) 1,250 1,250 mcg PO WK 08/16/25 08/20/25 mcg (50,000 unit) capsule (Vitamin D2) Previous Rx's Medication Instructions Recorded famotidine 20 mg tablet 20 mg PO DAILY #90 tabs 07/02/24 apixaban 5 mg tablet (Eliquis) 5 mg PO BID #180 tabs 12/02/24 atorvastatin 10 mg tablet 10 mg PO DAILY #90 tabs 01/30/25 levothyroxine 100 mcg tablet 100 mcg PO DAILY #90 tabs 01/30/25 metformin 500 mg tablet 500 mg PO BID #180 tabs 04/21/25 finasteride 5 mg tablet (Proscar) 5 mg PO DAILY #90 tabs 07/23/25 furosemide 40 mg tablet (Lasix) 40 mg PO Q OTHER DAY #30 tabs 08/13/25 metoprolol succinate 25 mg 75 mg (3 x 25 mg) PO QAM #30 tabs 08/13/25 tablet,extended release 24 hr potassium chloride 10 mEq 10 meq PO Q OTHER DAY #30 caps 08/13/25 capsule,extended release metoprolol tartrate 25 mg tablet 25 mg PO PM #30 tabs 08/16/25 magnesium chloride 64 mg 64 mg PO DAILY #90 tabs 08/21/25 (magnesium chloride) tablet,delayed release Results & Data (ED) Vital Signs Vital Signs - 24 hr 08/16/25 01:53 08/16/25 02:01 08/16/25 02:06 Temperature 36.8 C Temperature Source Oral Pulse Rate 128 H 147 H Pulse Rate from SpO2 Sensor Pulse Rhythm Respiratory Rate 18 Respiratory Effort / Characteristics Non-Labored Spontaneous Non-Labored Spontaneous Respiratory Depth Normal Normal Respiratory Pattern Regular Blood Pressure 136/81 Blood Pressure Mean 99 Blood Pressure Position Sitting Pulse Oximetry 99 Oxygen Delivery Method Room Air Room Air Oxygen Flow Rate Sepsis Recent Fever Within 48 Hours No Sepsis New/Unexplained Change in Mental Status N/A Sepsis Action Taken by Nursing No Action Required 08/16/25 02:09 08/16/25 02:10 08/16/25 02:11 Temperature Temperature Source Pulse Rate 103 H 120 H Pulse Rate from SpO2 Sensor 106 H Pulse Rhythm Regular Respiratory Rate 17 18 Respiratory Effort / Characteristics Respiratory Depth Respiratory Pattern Blood Pressure 140/95 Blood Pressure Mean 110 Blood Pressure Position Pulse Oximetry 97 96 97 Oxygen Delivery Method Room Air Room Air Room Air Oxygen Flow Rate Sepsis Recent Fever Within 48 Hours Sepsis New/Unexplained Change in Mental Status Sepsis Action Taken by Nursing 08/16/25 02:14 08/16/25 02:21 08/16/25 02:26 Temperature Temperature Source Pulse Rate 121 H 135 H Pulse Rate from SpO2 Sensor 126 H 130 H Pulse Rhythm Respiratory Rate 21 20 Respiratory Effort / Characteristics Respiratory Depth Respiratory Pattern Blood Pressure 114/73 Blood Pressure Mean 86 Blood Pressure Position Pulse Oximetry 98 97 97 Oxygen Delivery Method Room Air Room Air Room Air Oxygen Flow Rate 0 Sepsis Recent Fever Within 48 Hours Sepsis New/Unexplained Change in Mental Status Sepsis Action Taken by Nursing 08/16/25 02:26 08/16/25 02:30 08/16/25 02:36 Temperature Temperature Source Pulse Rate 119 H 110 H 119 H Pulse Rate from SpO2 Sensor 109 H 118 H Pulse Rhythm Respiratory Rate 21 18 Respiratory Effort / Characteristics Respiratory Depth Respiratory Pattern Blood Pressure 114/73 Blood Pressure Mean Blood Pressure Position Pulse Oximetry 97 98 Oxygen Delivery Method Room Air Room Air Oxygen Flow Rate Sepsis Recent Fever Within 48 Hours Sepsis New/Unexplained Change in Mental Status Sepsis Action Taken by Nursing 08/16/25 02:37 08/16/25 02:45 08/16/25 02:45 Temperature Temperature Source Pulse Rate 119 H 121 H 121 H Pulse Rate from SpO2 Sensor 119 H 111 H Pulse Rhythm Respiratory Rate 16 18 Respiratory Effort / Characteristics Respiratory Depth Respiratory Pattern Blood Pressure 124/72 86/74 L 86/74 L Blood Pressure Mean 89 78 Blood Pressure Position Pulse Oximetry 98 97 Oxygen Delivery Method Room Air Room Air Oxygen Flow Rate Sepsis Recent Fever Within 48 Hours Sepsis New/Unexplained Change in Mental Status Sepsis Action Taken by Nursing 08/16/25 02:48 08/16/25 03:00 08/16/25 03:15 Temperature Temperature Source Pulse Rate 115 H 118 H 97 H Pulse Rate from SpO2 Sensor 100 H 104 H 96 H Pulse Rhythm Respiratory Rate 22 21 18 Respiratory Effort / Characteristics Respiratory Depth Respiratory Pattern Blood Pressure 98/66 L 99/67 L 113/65 Blood Pressure Mean 76 77 81 Blood Pressure Position Pulse Oximetry 96 96 97 Oxygen Delivery Method Room Air Room Air Room Air Oxygen Flow Rate Sepsis Recent Fever Within 48 Hours Sepsis New/Unexplained Change in Mental Status Sepsis Action Taken by Nursing 08/16/25 03:30 08/16/25 03:42 08/16/25 03:45 Temperature Temperature Source Pulse Rate 103 H 108 H 122 H Pulse Rate from SpO2 Sensor 91 H 107 H 117 H Pulse Rhythm Respiratory Rate 17 16 18 Respiratory Effort / Characteristics Respiratory Depth Respiratory Pattern Blood Pressure 100/65 146/54 H 110/72 Blood Pressure Mean 76 84 84 Blood Pressure Position Pulse Oximetry 96 99 98 Oxygen Delivery Method Room Air Room Air Room Air Oxygen Flow Rate Sepsis Recent Fever Within 48 Hours Sepsis New/Unexplained Change in Mental Status Sepsis Action Taken by Nursing 08/16/25 03:51 08/16/25 04:00 08/16/25 04:15 Temperature Temperature Source Pulse Rate 112 H 117 H 107 H Pulse Rate from SpO2 Sensor 104 H 107 H 103 H Pulse Rhythm Respiratory Rate 16 14 14 Respiratory Effort / Characteristics Respiratory Depth Respiratory Pattern Blood Pressure 100/59 L 91/57 L Blood Pressure Mean 72 71 Blood Pressure Position Pulse Oximetry 97 97 98 Oxygen Delivery Method Room Air Room Air Oxygen Flow Rate Sepsis Recent Fever Within 48 Hours Sepsis New/Unexplained Change in Mental Status Sepsis Action Taken by Nursing 08/16/25 04:15 08/16/25 04:15 08/16/25 04:15 Temperature Temperature Source Pulse Rate 106 H Pulse Rate from SpO2 Sensor 76 Pulse Rhythm Respiratory Rate 17 Respiratory Effort / Characteristics Respiratory Depth Respiratory Pattern Blood Pressure 91/57 L 91/57 L Blood Pressure Mean 71 71 Blood Pressure Position Pulse Oximetry 99 Oxygen Delivery Method Room Air Oxygen Flow Rate Sepsis Recent Fever Within 48 Hours Sepsis New/Unexplained Change in Mental Status Sepsis Action Taken by Nursing 08/16/25 04:30 08/16/25 04:30 08/16/25 04:45 Temperature Temperature Source Pulse Rate 108 H 108 H 111 H Pulse Rate from SpO2 Sensor 92 H 106 H Pulse Rhythm Respiratory Rate 19 20 Respiratory Effort / Characteristics Respiratory Depth Respiratory Pattern Blood Pressure 113/74 113/74 105/65 Blood Pressure Mean 87 78 Blood Pressure Position Pulse Oximetry 99 98 Oxygen Delivery Method Room Air Room Air Oxygen Flow Rate Sepsis Recent Fever Within 48 Hours Sepsis New/Unexplained Change in Mental Status Sepsis Action Taken by Nursing 08/16/25 04:45 Temperature Temperature Source Pulse Rate 111 H Pulse Rate from SpO2 Sensor Pulse Rhythm Respiratory Rate Respiratory Effort / Characteristics Respiratory Depth Respiratory Pattern Blood Pressure 105/65 Blood Pressure Mean Blood Pressure Position Pulse Oximetry Oxygen Delivery Method Oxygen Flow Rate Sepsis Recent Fever Within 48 Hours Sepsis New/Unexplained Change in Mental Status Sepsis Action Taken by [facility] Medications Current Medication List: was personally reviewed by me Laboratory Data Attestation: I reviewed the patient's lab results. 08/16/25 02:09 08/16/25 09:44 Lab Results 08/16/25 08/16/25 Range/Units 02:09 04:07 WBC 10.89 H (4.8-10.8) K/ul RBC 4.39 (4.20-5.40) M/uL Hgb 13.1 (12.0-16.0) g/dL Hct 38.4 (37.0-47.0) % MCV 87.5 (80.0-100.0) fL MCH 29.8 (25.0-34.0) pg MCHC 34.1 (32.0-36.0) g/dL RDW Std Deviation 43.6 (36.4-46.3) fL RDW Coeff of Trini 13.7 (11.5-14.5) % Plt Count 238 (130-400) K/uL MPV 12.5 H (9.4-12.4) fL Immature Gran % (Auto) 0.2 % Neut % (Auto) 55.1 % Lymph % (Auto) 33.7 % Hall % (Auto) 8.7 % Eos % (Auto) 1.7 % Baso % (Auto) 0.6 % Neut # (Auto) 6.00 (1.40-6.50) K/uL Lymph # (Auto) 3.67 H (1.20-3.40) K/uL Hall # (Auto) 0.95 H (0.11-0.59) K/uL Eos # (Auto) 0.19 (0.00-0.50) K/uL Baso # (Auto) 0.06 (0.00-0.20) K/uL Immature Gran # (Auto) 0.02 (0.01-0.20) K/uL Sodium 134 L (136-145) mmol/L Potassium 4.0 (3.5-5.1) mmol/L Chloride 100 (98-107) mmol/L Carbon Dioxide 22 (21-32) mmol/L Anion Gap 12 H (3-11) BUN 34 H (6-23) mg/dl Creatinine 0.97 (0.6-1.2) mg/dl Est Cr Clr Drug Dosing 48.6 ml/min eGFR 61.70 BUN/Creatinine Ratio 35.1 H (10-20) Glucose 161 H (70-99(Fasting)) mg/dl Calcium 9.5 (8.6-10.3) mg/dl Magnesium 1.6 L (1.7-2.4) mg/dl Total Bilirubin 0.3 (0.2-1.0) mg/dl AST 35 (13-39) U/L ALT 41 (7-52) U/L Alkaline Phosphatase 104 (34-104) U/L Troponin I High Sens 20.9 H 30.3 H (0-14) pg/ml B-Natriuretic Peptide 603 H (0-100) pg/ml Total Protein 7.3 (6.0-8.3) gm/dl Albumin 4.4 (3.4-5.0) gm/dl Globulin 2.9 (2.5-4.0) gm/dl Albumin/Globulin Ratio 1.5 (0.9-2) Lipase 35 (11-82) U/L TSH 3.474 (0.300-4.500) uIu/ml Administered Medications Discontinued Medications Apixaban (Apixaban 5 Mg Tablet) 5 mg PO BID CHARLY Stop: 09/15/25 08:59 Last Admin: 08/16/25 08:02 Dose: 5 mg Documented By: OS Atorvastatin Calcium (Atorvastatin 10 Mg Tab) 10 mg PO DAILY CHARLY Stop: 09/15/25 08:59 Last Admin: 08/16/25 08:01 Dose: 10 mg Documented By: OS Famotidine (Famotidine 20 Mg Tab) 20 mg PO DAILY CHARLY Stop: 09/15/25 08:59 Last Admin: 08/16/25 08:03 Dose: 20 mg Documented By: OS Finasteride (Finasteride 5 Mg Tab) 5 mg PO DAILY CHARLY Stop: 09/15/25 08:59 Last Admin: 08/16/25 08:02 Dose: Not Given Documented By: OS Furosemide (Furosemide 40 Mg/4 Ml Vial) 40 mg IV ONE ONE Stop: 08/16/25 04:55 Last Admin: 08/16/25 05:02 Dose: 40 mg Documented By: PRETTY Sodium Chloride (Nss) 1,000 mls @ 999 mls/hr IV .Q1H1M STA Stop: 08/16/25 03:03 Last Admin: 08/16/25 02:13 Dose: Not Given Documented By: PRETTY Sodium Chloride (Nss) 250 mls @ 999 mls/hr IV .Q16M ONE Stop: 08/16/25 02:28 Last Infusion: 08/16/25 02:54 Dose: Infused Documented By: Admin: 08/16/25 02:15 Dose: 999 mls/hr Documented By: PRETTY Magnesium Sulfate/Dextrose (Magnesium Sulfate / D5w) 1 gm in 100 mls @ 100 mls/hr IV NOW STA Stop: 08/16/25 03:52 Last Infusion: 08/16/25 04:35 Dose: Infused Documented By: Admin: 08/16/25 03:01 Dose: 100 mls/hr Documented By: PRETTY Sodium Chloride (Nss) 250 mls @ 999 mls/hr IV .Q16M ONE Stop: 08/16/25 03:08 Last Infusion: 08/16/25 03:37 Dose: Infused Documented By: Admin: 08/16/25 02:59 Dose: 999 mls/hr Documented By: Magnesium Sulfate/Dextrose (Magnesium Sulfate / D5w) 1 gm in 100 mls @ 50 mls/hr IV ONE ONE Stop: 08/16/25 07:32 Last Infusion: 08/16/25 08:10 Dose: Infused Documented By: Admin: 08/16/25 06:03 Dose: 50 mls/hr Documented By: PRETTY Levothyroxine Sodium (Levothyroxine Sodium 100 Mcg Tablet) 100 mcg PO DAILYBB [facility] Stop: 09/15/25 06:29 Last Admin: 08/16/25 08:02 Dose: 100 mcg Documented By: OS Metformin HCl (Metformin Hcl 500 Mg Tab) 500 mg PO BIDM [facility] Stop: 09/15/25 07:59 Last Admin: 08/16/25 08:48 Dose: Not Given Documented By: OS Metoprolol Succinate (Metoprolol Succ 25mg Ext Rel Tab) 75 mg PO QAM [facility] Stop: 09/15/25 08:59 Last Admin: 08/16/25 08:03 Dose: 75 mg Documented By: OS Metoprolol Tartrate (Metoprolol Tartrate 1 Mg/Ml Vial) 5 mg IV NOW [facility] Stop: 08/16/25 02:20 Last Admin: 08/16/25 02:26 Dose: 5 mg Documented By: PRETTY Metoprolol Tartrate (Metoprolol Tartrate 1 Mg/Ml Vial) 5 mg IV NOW [facility] Stop: 08/16/25 02:54 Last Admin: 08/16/25 04:30 Dose: 5 mg Documented By: PRETTY Potassium Chloride (Potassium Chloride 10 Meq Tabcr) 10 meq PO Q2D@0900 [facility] Stop: 09/15/25 08:59 Last Admin: 08/16/25 08:09 Dose: 10 meq Documented By: OS Imaging Data Attestation: I personally reviewed and interpreted this imaging study as follows: Radiologist's Impression: Chest X-Ray 08/16/25 02:03 EXAM: XR chest 1V portable CLINICAL HISTORY: Chest pain, nonspecific. TECHNIQUE: An X-ray image of the chest is obtained in AP projection. COMPARISON: Compared to the previous x-ray of the chest study, dated 08/13/2025. FINDINGS: Pulmonary Parenchyma: Lungs are clear bilaterally. No evidence of consolidation, collapse, or focal opacities. No pulmonary nodules are identified. No evidence of pleural effusion or pleural thickening. Heart and Mediastinum: Cardiomegaly. Implantable cardiac monitoring device No mediastinal widening or masses. No hilar or mediastinal lymphadenopathy. Bony Thorax: Osteoarthritis of bilateral acromioclavicular joints. No evidence of displaced bone fractures. Soft Tissues: Soft tissues overlying the chest wall are unremarkable. IMPRESSION: 1. No acute cardiopulmonary abnormalities are identified. 2. Cardiomegaly. 3. No significant interval changes from the previous study. Electronically signed by Edwin Garduno 08-16-2025 03:22 AM Discharge Plan Visit Data Chief Complaint: Cardiac Assessment Stated Complaint: SOB ED Provider: Cierra Shipley ED Midlevel Provider: Lisa Mccormick Discharge Problem: Atrial fibrillation with RVR, Hypomagnesemia, NATH (dyspnea on exertion) Patient Disposition: Admitted As Inpatient Condition: Fair Discharge Instructions Interventions: ED Discharge Assessment Last Done: 08/16/25 05:59
[2025-08-16] MEDS: SODIUM CHLORIDE 0.9% 1,000 ML IV STA (02:13)
[2025-08-16] MEDS: SODIUM CHLORIDE 0.9% 250 ML IV ONE ×2 (02:15→02:59)
[2025-08-16] MEDS: METOPROLOL TARTRATE 1 MG/ML VIAL IV STA ×2 (02:26→04:30)
[2025-08-16 02:32] LABS: Hematocrit (blood only) 38.4 % (37.0-47.0); Hemoglobin 13.1 g/dL (12.0-16.0); Immature Granulocytes # (auto) 0.02 K/uL (0.01-0.20); Immature Granulocytes % (auto) 0.2 %; Mean Corpuscular Hemoglobin 29.8 pg (25.0-34.0); Mean Corpuscular Volume 87.5 fL (80.0-100.0); Platelet Count 238 K/uL (130-400); RDW Standard Deviation 43.6 fL (36.4-46.3); Red Blood Count 4.39 M/uL (4.20-5.40); White Blood Count 10.89 K/ul (4.8-10.8)
[2025-08-16 02:51] LABS: Alanine Aminotransferase 41.0 U/L (7-52); Albumin Globulin Ratio 1.5 (0.9-2); Albumin Level 4.4 gm/dl (3.4-5.0); Alkaline Phosphatase 104.0 U/L (34-104); Anion Gap 12.0 (3-11); Bilirubin,Total 0.3 mg/dl (0.2-1.0); Blood Urea Nitrogen 34.0 mg/dl (6-23); Calcium 9.5 mg/dl (8.6-10.3); Carbon Dioxide 22.0 mmol/L (21-32); Chloride 100.0 mmol/L (98-107); Creatinine Clr Calc Pharmacy 48.6 ml/min; Globulin 2.9 gm/dl (2.5-4.0); Glucose 161.0 mg/dl (70-99(Fasting)); Lipase 35.0 U/L (11-82); Magnesium 1.6 mg/dl (1.7-2.4); Potassium 4.0 mmol/L (3.5-5.1); Sodium 134.0 mmol/L (136-145); Total Protein 7.3 gm/dl (6.0-8.3)
[2025-08-16] MEDS: MAGNESIUM SULFATE / D5W 1 GM/100 ML BAG IV STA (03:01)
[2025-08-16 03:06] LABS: Thyroid Stimulating Hormone 3.474 uIu/ml (0.300-4.500)
--- NOTE | 2025-08-16 03:23 | XRay Report ---
EXAM: XR chest 1V portable CLINICAL HISTORY: Chest pain, nonspecific. TECHNIQUE: An X-ray image of the chest is obtained in AP projection. COMPARISON: Compared to the previous x-ray of the chest study, dated 08/13/2025. FINDINGS: Pulmonary Parenchyma: Lungs are clear bilaterally. No evidence of consolidation, collapse, or focal opacities. No pulmonary nodules are identified. No evidence of pleural effusion or pleural thickening. Heart and Mediastinum: Cardiomegaly. Implantable cardiac monitoring device No mediastinal widening or masses. No hilar or mediastinal lymphadenopathy. Bony Thorax: Osteoarthritis of bilateral acromioclavicular joints. No evidence of displaced bone fractures. Soft Tissues: Soft tissues overlying the chest wall are unremarkable. IMPRESSION: 1. No acute cardiopulmonary abnormalities are identified. 2. Cardiomegaly. 3. No significant interval changes from the previous study. Electronically signed by Edwin Garduno 08-16-2025 03:22 AM
[2025-08-16] MEDS: FUROSEMIDE 40 MG/4 ML VIAL IV ONE (05:02)
--- NOTE | 2025-08-16 05:33 | History & Physical Report ---
Date of Service August 16, 2025 Assessment & Plan (1) Atrial fibrillation with RVR: (2) Hypomagnesemia: (3) Elevated troponin: (4) Cardiomyopathy: Plan Patient is a 75-year-old female with a past medical history of A-fib, apical variant hypertrophic cardiomyopathy, GERD, HLD. Patient was recently admitted from 08/12 to 08/13 for dyspnea on exertion thought to be an acute CHF exacerbation - she was evaluated by cardiology at this time and had an echocardiogram which showed EF 60 to 65%, grade 1 diastolic dysfunction, severe LVH consistent with known apical variant hypertrophic cardiomyopathy. She was started on p.o. Lasix and was reportedly transitioned from metoprolol tartrate to succinate. She now presented to the ED 08/16 due to heart palpitations found to be in A-fib with RVR. #A fib with RVR - symptomatic with heart palpitations. A-fib with RVR on EKG in ED and telemetry. With hypomagnesemia, otherwise electrolytes stable. TSH WNL. - Continue home [place] Received Lopressor 5 mg IV x 2 in ED however became hypotensive Continue Lopressor 5 Mg IV as needed for HR >120 with holding precautions Previously on metoprolol to tartrate 25 mg twice daily and was transitioned to metoprolol succinate 75 mg daily after recent discharge 08/13 Suspect patient needs evening coverage of rate control - will continue metoprolol succinate 75 mg QAM with addition of 50 mg at bedtime - correct electrolytes - 2 G IV mag ordered - EKG as needed Consult cardiology as per patient request for further medication adjustments Defer echocardiogram as patient just had 08/13 #Hypomagnesemiamag 1.6, K+ 4.0, renal function stable. Likely 2/2 recent diuretic use. 2G IV magnesium ordered Repeat BMP and mag at 1000 #Elevated troponin trop 20.9 -> 30.3. EKG without ischemic changes, A-fib RVR as above. Likely demand ischemia in the setting of A-fib with RVR Trend Trop every 6 hours EKG with chest pain as needed #Pre-DMcontinue metformin - no acute indication for SSI given glucose stable, renal function stable, no IV contrast use. #Diastolic CHF/apical variant hypertrophic cardiomyopathynot in acute exacerbation at time of admission. CXR without signs of congestion. Received Lasix 40 mg IV in the ED Will hold further diuresis pending clinical course and patient hypotensive Strict I's and O's Daily weights #HLDcontinue statin VTE ppx: Continue home Eliquis + SCDs Dispo: PCU Admission and Anticipated Discharge Date Admission Date: 08/16/25 History of Present Illness Chief Complaint: Cardiac assessment Primary Care Provider: Jorge A Schroeder MD Patient is a 75-year-old female with a past medical history of A-fib, apical variant hypertrophic cardiomyopathy, GERD, HLD. Patient was recently admitted from 08/12 to 08/13 for dyspnea on exertion thought to be an acute CHF exacerb ation and started on p.o. Lasix. She now presented to the ED 08/16 due to heart palpitations found to be in A-fib with RVR. Patient seen at bedside with her present. She stated at 1220 or 1230 this evening when she was sleeping she developed heart palpitations which has been pretty consistent since they began however is now improving but still present after Lopressor 5 Mg IV x 2 in the ED. She felt fine after she went home and Monday until this evening. She also endorses feeling like her "breathing was heavy" however denies any chest pain or shortness of breath in the ED. She did become hypotensive after Lopressor which resolved with some IV fluids and she denies any dizziness or lightheadedness. Patient stated she was diagnosed with A-fib 2 years ago and had a loop recorder. She was in A-fib when she was originally diagnosed, again in last September, and now today. This feels similar to previous episodes of A-fib. She stated when she was just here she was started on Lasix every other day which she did take 08/15 with her potassium supplement. She was previously on metoprolol to tartrate 25 mg twice daily and was transition to metoprolol succinate 75 mg daily during this recent admission. She denies any lower extremity edema or signs of CHF exacerbation. She stated she was down 9 pounds when she was discharged home however after her Thanksgiving meal yesterday was back up 5 pounds. She denies high sodium intake in her meals over the past few days have consisted of Pasta, salmon, 3 ladle's of soup, chicken, rice, and pumpkin pie. She took all of her home medications this evening prior to arrival. She wishes to be full code. Patient is a snowbird and plans to go to [place] on Sunday 08/19. She has a cardiology appointment for 08/28 in [place]. She would like all records to be printed on discharge to be able to take them there. Previous records reviewed she was admitted from 08/12 to 08/13 due to dyspnea on exertion thought to be secondary to CHF exacerbation. She did have a troponin elevation which peaked at 55.3 again thought to be secondary to CHF exacerbation. She was evaluated by cardiology at this time and had an e chocardiogram which showed EF 60 to 65%, grade 1 diastolic dysfunction, severe LVH consistent with known apical variant hypertrophic cardiomyopathy. Allergies Allergy/AdvReac Type Severity Reaction Status Date / Time fexofenadine Allergy Mild INSOMNIA Verified 08/12/25 09:41 prednisone Allergy Unknown UNKNOWN Verified 08/12/25 09:41 rofecoxib Allergy Unknown UNKNOWN Verified 08/12/25 09:41 polyethylene glycol 3350 AdvReac Unknown Abdominal Verified 08/12/25 09:41 [From Miralax] Pain empagliflozin AdvReac Dizziness Verified 08/12/25 09:41 [From Jardiance] Home Medications Medication Instructions Recorded Confirmed Type coQ10 (ubiquinol) 100 mg capsule 100 mg PO DAILY 12/29/21 08/16/25 History ascorbic acid (vitamin C) 500 mg 500 mg PO DAILY 02/08/23 08/16/25 History tablet (Vitamin C) mecobalamin (vitamin B12) 1,000 1,000 mcg sublingual DAILY 08/08/23 08/16/25 History mcg disintegrating tablet,sublingual famotidine 20 mg tablet 20 mg PO DAILY #90 tabs 07/02/24 08/16/25 Rx apixaban 5 mg tablet (Eliquis) 5 mg PO BID #180 tabs 12/02/24 08/16/25 Rx atorvastatin 10 mg tablet 10 mg PO DAILY #90 tabs 01/30/25 08/16/25 Rx levothyroxine 100 mcg tablet 100 mcg PO DAILY #90 tabs 01/30/25 08/16/25 Rx metformin 500 mg tablet 500 mg PO BID #180 tabs 04/21/25 08/16/25 Rx finasteride 5 mg tablet (Proscar) 5 mg PO DAILY #90 tabs 07/23/25 08/16/25 Rx furosemide 40 mg tablet (Lasix) 40 mg PO Q OTHER DAY #30 tabs 08/13/25 08/16/25 Rx metoprolol succinate 25 mg 75 mg (3 x 25 mg) PO QAM #30 tabs 08/13/25 08/16/25 Rx tablet,extended release 24 hr potassium chloride 10 mEq 10 meq PO Q OTHER DAY #30 caps 08/13/25 08/16/25 Rx capsule,extended release ergocalciferol (vitamin D2) 1,250 1,250 mcg PO WK 08/16/25 08/16/25 History mcg (50,000 unit) capsule (Vitamin D2) metoprolol tartrate 25 mg tablet 25 mg PO PM #30 tabs 08/16/25 Rx Past Med/Surg History Problem List (Updated 08/16/25 @ 06:05 by Kirsten Ortiz PA-C) Atrial fibrillation with RVR Hypomagnesemia NATH (dyspnea on exertion) CHF (congestive heart failure) (Acute) SOB (shortness of breath) (Acute) Palpitations (Acute) Elevated troponin (Acute) Weakness (Acute) Cardiomyopathy Ingrowing toenail of right foot Ingrowing left great toenail Posterior tibial tendon dysfunction (PTTD) of both lower extremities Pes planus of both feet Myalgia Spinal stenosis of cervical region Cervical disc disease Metatarsalgia Paroxysmal atrial fibrillation Shoulder pain Hypertrophic cardiomyopathy Encounter for interrogation of cardiac recorder Impaired glucose tolerance GERD (gastroesophageal reflux disease) Radicular pain of upper extremity Elevated troponin Diabetes Tachycardia Cervical radiculopathy Bilateral shoulder pain Alopecia Rotator cuff arthropathy UTI (urinary tract infection) Paresthesia and pain of both upper extremities Arthralgia Postmenopausal syndrome Arthritis of hand Low vitamin B12 level CMC arthritis Tendinitis of left rotator cuff Dysphagia Synovitis and tenosynovitis Iliotibial band syndrome, right leg Left rotator cuff tear Arthritis Fatty liver GERD (gastroesophageal reflux disease) Hypothyroidism Hypercholesterolemia Mitral regurgitation Hypertension Apical variant hypertrophic cardiomyopathy Back pain Medical History Diverticulitis Eustachian tube dysfunction Bronchitis Diverticulitis large intestine Left ventricular hypertrophy Mammogram abnormal Anemia Abnormal EKG Surgical History History of adenoidectomy H/O tubal ligation S/P tonsillectomy H/O: hysterectomy H/O bilateral salpingo-oophorectomy Hx of cataract surgery Family History Aunt Colorectal cancer Ovarian cancer Father Colorectal cancer Sister Breast cancer Uterine cancer Father Bladder cancer Denies family history of Prostate cancer Dyslipidemia Myocardial infarction Lung cancer Hypertension Social History Smoking Status: Never smoker Second Hand Exposure: No; Do You Dip or Chew Tobacco: No; Hx Alcohol Use: No Hx Substance Use: No Preferred Language: Arabic Communication Ability: Effective Visual Impairment: No Limitations Hearing Ability: Normal Contact Acid Plant Operator Required: No Beliefs That Will Affect Care: None marital status: Current Living Situation: Spouse current occupational status: other current occupation: homemaker Other Information That Helps Us Care for You: No Feels Safe at Home: Yes Safety Concerns: Feels Safe At This Time Dental Care, Regularly: Yes Physical Activity Frequency: 3-4 Times per Week Seatbelt Use: always Assistive Devices: Glasses Review of Systems Review of Systems: see HPI Physical Exam Physical Exam: The patient is awake, alert and oriented 3, well developed and well nourished, normocephalic and atraumatic, in no acute distress. Non-toxic appearing. HEENT- EOMI, mucous membranes moist. Hearing grossly intact. Heart-normal S1 and S2. No murmurs, rubs or gallops. Lungs-clear bilaterally, no respiratory distress, no accessory muscle use. Abdomen-normal bowel sounds and soft. No ascites noted. Non-tender. Extremities- no clubbing, cyanosis, or edema. Rheumatologic-normal range of motion. Psychiatric-normal affect. Results & Data Results & Data Vital Signs (Past 12 Hours) Vital Signs Temp Pulse Resp BP Pulse Ox O2 Del Method O2 Flow Rate 08/16/25 05:30 98 H 20 109/75 97 Room Air 08/16/25 05:15 86 21 109/80 98 Room Air 08/16/25 05:12 105 H 15 97 Room Air 08/16/25 05:03 108 H 22 97 Room Air 08/16/25 04:54 89 17 97/60 L 100 Room Air 08/16/25 04:51 100 H 22 98 Room Air 08/16/25 04:45 111 H 105/65 08/16/25 04:45 111 H 20 105/65 98 Room Air 08/16/25 04:30 108 H 113/74 08/16/25 04:30 108 H 19 113/74 99 Room Air 08/16/25 04:15 106 H 17 99 Room Air 08/16/25 04:15 91/57 L 08/16/25 04:15 91/57 L 08/16/25 04:15 107 H 14 91/57 L 98 Room Air 08/16/25 04:00 117 H 14 100/59 L 97 08/16/25 03:51 112 H 16 97 Room Air 08/16/25 03:45 122 H 18 110/72 98 Room Air 08/16/25 03:42 108 H 16 146/54 H 99 Room Air 08/16/25 03:30 103 H 17 100/65 96 Room Air 08/16/25 03:15 97 H 18 113/65 97 Room Air 08/16/25 03:00 118 H 21 99/67 L 96 Room Air 08/16/25 02:48 115 H 22 98/66 L 96 Room Air 08/16/25 02:45 121 H 86/74 L 08/16/25 02:45 121 H 18 86/74 L 97 Room Air 08/16/25 02:37 119 H 16 124/72 98 Room Air 08/16/25 02:36 119 H 18 98 Room Air 08/16/25 02:30 110 H 21 97 Room Air 08/16/25 02:26 119 H 114/73 08/16/25 02:26 135 H 20 114/73 97 Room Air 08/16/25 02:21 121 H 21 97 Room Air 08/16/25 02:14 98 Room Air 0 08/16/25 02:11 97 Room Air 08/16/25 02:10 120 H 18 96 Room Air 08/16/25 02:09 103 H 17 140/95 97 Room Air 08/16/25 02:06 147 H 08/16/25 02:01 Room Air 08/16/25 01:53 36.8 C 128 H 18 136/81 99 Room Air Laboratory Results Reviewed CBC, CMP, troponin, BNP, lipase, TSH Diagnostic Findings reviewed CXR Medications Administered ED1.5 L NSS bolus, Lopressor 5 mg IV x 2, 1G IV magnesium, Lasix 40 mg IV ECG Additional Comments: A-fib with RVR Code Status & VTE Plan Code Status full code VTE Prophylaxis Plan VTE Prophylaxis will be ordered: Yes Supervising Physician Co-Signing Physician Notes Attending addendum: I have supervised the medical residents activities, and agree with the H&P unless as otherwise noted. Assessment and Plan: The patient is a 75-year-old female with past medical history including atrial fibrillation, apical variant hypertrophic cardiomyopathy, GERD, and hyperlipidemia. She was recently admitted from 08/12-08/13 for dyspnea on exertion due to CHF exacerbation., Grade 1 diastolic dysfunction, severe LVH consistent with known apical variant hypertrophic cardiomyopathy. She was started on oral Lasix, and was transitioned from metoprolol to tartrate to metoprolol succinate. Echocardiogram that admission showed ejection fraction of 60 to 65%. She presented to the emergency department on 08/16 due to heart palpitations, and EKG showed atrial fibrillation with RVR. A-fib with RVR/diastolic CHF/apical variant hypertrophic cardiomyopathy- The patient will be admitted to telemetry for serial cardiac enzymes, serial EKG's, cardiac rhythm monitoring. Received Lasix 40 mg IV in ED, will hold on any further dosing at this time Continue Eliquis Initial troponin 20.9 with follow-up 30.3, likely secondary to increased heart rate. Optimize magnesium 2 g magnesium IV repeat laboratories in the a.m. Received Lopressor 5 mg IV x 2 in ED, but became secondarily hypotensive Change metoprolol succinate to 75mg in the AM and 50 mg at bedtime to improve 20 for rate control. Consult cardiology Hypomagnesemia- Magnesium 1.6 on admission Keep 2 g mag sulfate IV and recheck laboratories in the a.m. PG Care Time/CCT Total # of Minutes Spent Total Time Spent with Patient: Total time spent is greater than 50% in coordination of care (as documented) at patient's floor/unit and/or counseling patient: Coding Level of Care Code 91028 INT INP/OBS CARE 3/75MIN Diagnoses Atrial fibrillation with RVR I48.91 Hypomagnesemia E83.42 Elevated troponin R79.89 Cardiomyopathy I42.9
[2025-08-16] MEDS: MAGNESIUM SULFATE / D5W 1 GM/100 ML BAG IV ONE (06:03)
[2025-08-16] MEDS ORDERED: ACETAMINOPHEN 325 MG TAB PO PRN (06:32)
[2025-08-16] MEDS ORDERED: DOCUSATE SODIUM 100 MG CAP PO PRN (06:32)
[2025-08-16] MEDS ORDERED: ONDANSETRON INJ 2 MG/ML 2 ML VIAL IV PRN (06:32)
[2025-08-16] MEDS ORDERED: METOPROLOL TARTRATE 1 MG/ML VIAL IV PRN (06:32)
[2025-08-16] MEDS ORDERED: MELATONIN 3 MG TAB PO PRN (06:32)
[2025-08-16 06:53] VITALS: TEMP 97.3
[2025-08-16 07:28] VITALS: PULSE 72
[2025-08-16] MEDS: ATORVASTATIN 10 MG TAB PO SCH (08:01)
[2025-08-16] MEDS: APIXABAN 5 MG TABLET PO SCH (08:02)
[2025-08-16] MEDS: FINASTERIDE 5 MG TAB PO SCH (08:02)
[2025-08-16] MEDS: LEVOTHYROXINE SODIUM 100 MCG TABLET PO SCH (08:02)
[2025-08-16] MEDS: FAMOTIDINE 20 MG TAB PO SCH (08:03)
[2025-08-16] MEDS: METOPROLOL SUCC 25MG EXT REL TAB PO SCH (08:03)
[2025-08-16] MEDS: POTASSIUM CHLORIDE 10 MEQ TABCR PO SCH (08:09)
--- NOTE | 2025-08-16 08:25 | Electrocardiogram Report ---
Test Reason : Blood Pressure : */* mmHG Vent. Rate : 115 BPM Atrial Rate : * BPM P-R Int : * ms QRS Dur : 80 ms QT Int : 294 ms P-R-T Axes : * 32 192 degrees QTcB Int : 406 ms Atrial fibrillation with rapid ventricular response Left ventricular hypertrophy with repolarization abnormality Abnormal ECG When compared with ECG of 12-Aug-2025 18:18, Atrial fibrillation has replaced Sinus rhythm T wave inversion more evident in Inferior leads Confirmed by Anibal Walden ([id number]) on 08/16/2025 8:24:44 AM Referred By: REFERRED SELF Confirmed By: Anibal Walden
[2025-08-16 10:40] LABS: Chlamydia pneumoniae PCR Not Detected (NotDetected); Coronavirus 229E PCR Not Detected (NotDetected); Coronavirus CoV-2 (COVID19)PCR Not Detected (NotDetected); Coronavirus HKU1 PCR Not Detected (NotDetected); Coronavirus NL63 PCR Not Detected (NotDetected); Coronavirus OC43PCR Not Detected (NotDetected); Human Metapneumovirus PCR Not Detected (NotDetected); Parainfluenza Virus 1 PCR Not Detected (NotDetected); Parainfluenza Virus 2 PCR Not Detected (NotDetected); Parainfluenza Virus 3 PCR Not Detected (NotDetected); Parainfluenza Virus 4 PCR Not Detected (NotDetected); Respiratory Syncytial VirusPCR Not Detected (NotDetected); Rhinovirus/Enterovirus PCR Not Detected (NotDetected)
[2025-08-16 10:42] LABS: Magnesium 2.2 mg/dl (1.7-2.4)
[2025-08-16 10:43] LABS: Anion Gap 8.0 (3-11); Blood Urea Nitrogen 25.0 mg/dl (6-23); Calcium 9.3 mg/dl (8.6-10.3); Carbon Dioxide 29.0 mmol/L (21-32); Chloride 102.0 mmol/L (98-107); Creatinine Clr Calc Pharmacy 59.1 ml/min; Glucose 114.0 mg/dl (70-99(Fasting)); Potassium 3.7 mmol/L (3.5-5.1); Sodium 139.0 mmol/L (136-145)
--- NOTE | 2025-08-16 11:03 | Cardiology Progress Note ---
Date of Service August 16, 2025 Assessment & Plan (1) Atrial fibrillation with RVR: (2) Apical variant hypertrophic cardiomyopathy: Plan 1. Atrial fibrillation: This may have worsened progression of her atrial fibrillation. In whole, she is actually had very little atrial fibrillation. Last documented episode was August 07. However, she is quite bothered by the high ventricular rates. We discussed multiple options for treatment to include additional attempts at rate control with metoprolol to tartrate in the evening, initiating antiarrhythmic therapy with sotalol or amiodarone and/or catheter- based therapy. She rightly wants to adopt the most conservative approach currently. She has some aversion to medical therapy. Overall A-fib burden still quite low. I think we will try a dose of metoprolol tartrate in the evening and monitor her response. She will continue systemic anticoagulation. 2. Cardiomyopathy: No obstructive symptoms. Overall reasonable exercise tolerance. He is continuing on beta-blockade has adequate blood pressure control on her current medical regimen. No other arrhythmias identified on her loop monitor recordings. Admission and Anticipated Discharge Date Admission Date: August 16, 2025 Subjective The patient is a 75-year-old woman with a history of apical variant hypertrophic cardiomyopathy and paroxysmal atrial fibrillation who presented to the hospital with paroxysmal atrial fibrillation. She was recently hospitalized for symptoms of palpitation. Discovered at the time of admission to have some element of pulmonary vascular congestion. She underwent a mild diuresis and her medications were adjusted. She states that she felt really well for 1 day, but early this morning she developed recurrent palpitations and high heart rates. She had some mild dyspnea. Mild dizziness. No significant chest discomfort. She presented to the hospital was discovered to have atrial fibrillation with high ventricular rates. She was initially administered metoprolol which reduce her blood pressure. She was then given a fluid bolus. She also underwent a diuresis with a dose of Lasix. She had received magnesium supplementation as well. This morning she is feeling well. She still notices palpitations at times. Most noticeable when she is active. She denies significant dizziness. Carmen athing is at baseline. No current chest pain. Review of Systems Review of Systems: Per HPI Physical Exam Physical Exam: She is alert and oriented x3. Mood affect appear normal. She answered all questions appropriately. HEENT: Sclerae are anicteric. Pupils are equal and reactive to light and accommodation. Extraocular movements were intact. Neuro: Cranial nerves intact Lungs: Lungs are clear to auscultation bilaterally. There are no rales wheezes or rhonchi. She has normal respiratory effort without use of accessory muscles. There is normal pulmonary excursion. Cardiac: The rhythm was irregular. S1 and S2 were normal. There are no murmurs on examination. The PMI was not markedly displaced on palpation. Extremities: Patient has bilateral radial pulses that are equal in intensity. There is no evidence cyanosis or clubbing. There was no evidence of significant peripheral edema bilaterally. Skin: There are no rashes noted on examination today. Results & Data Vital Signs (Past 12 Hours) Vital Signs Temp Pulse Pulse Resp BP BP Pulse Ox 08/16/25 07:27 36.3 C L 72 18 102/73 99 08/16/25 06:32 36.3 C L 102 H 16 115/67 98 08/16/25 06:00 106/68 08/16/25 06:00 91 H 13 96 08/16/25 05:59 36.6 C 08/16/25 05:51 89 14 98 08/16/25 05:42 105 H 15 99 08/16/25 05:30 98 H 20 109/75 97 08/16/25 05:15 86 21 109/80 98 08/16/25 05:12 105 H 15 97 08/16/25 05:03 108 H 22 97 08/16/25 04:54 89 17 97/60 L 100 08/16/25 04:51 100 H 22 98 08/16/25 04:45 111 H 105/65 08/16/25 04:45 111 H 20 105/65 98 08/16/25 04:30 108 H 113/74 08/16/25 04:30 108 H 19 113/74 99 08/16/25 04:15 106 H 17 99 08/16/25 04:15 91/57 L 08/16/25 04:15 91/57 L 08/16/25 04:15 107 H 14 91/57 L 98 08/16/25 04:00 117 H 14 100/59 L 97 08/16/25 03:51 112 H 16 97 08/16/25 03:45 122 H 18 110/72 98 08/16/25 03:42 108 H 16 146/54 H 99 08/16/25 03:30 103 H 17 100/65 96 08/16/25 03:15 97 H 18 113/65 97 08/16/25 03:00 118 H 21 99/67 L 96 08/16/25 02:48 115 H 22 98/66 L 96 08/16/25 02:45 121 H 86/74 L 08/16/25 02:45 121 H 18 86/74 L 97 08/16/25 02:37 119 H 16 124/72 98 08/16/25 02:36 119 H 18 98 08/16/25 02:30 110 H 21 97 08/16/25 02:26 119 H 114/73 08/16/25 02:26 135 H 20 114/73 97 08/16/25 02:21 121 H 21 97 08/16/25 02:14 98 08/16/25 02:11 97 08/16/25 02:10 120 H 18 96 08/16/25 02:09 103 H 17 140/95 97 08/16/25 02:06 147 H 08/16/25 02:01 08/16/25 01:53 36.8 C 128 H 18 136/81 99 O2 Del Method O2 Flow Rate 08/16/25 07:27 Room Air 08/16/25 06:32 Room Air 08/16/25 06:00 08/16/25 06:00 Room Air 08/16/25 05:59 08/16/25 05:51 Room Air 08/16/25 05:42 Room Air 08/16/25 05:30 Room Air 08/16/25 05:15 Room Air 08/16/25 05:12 Room Air 08/16/25 05:03 Room Air 08/16/25 04:54 Room Air 08/16/25 04:51 Room Air 08/16/25 04:45 08/16/25 04:45 Room Air 08/16/25 04:30 08/16/25 04:30 Room Air 08/16/25 04:15 Room Air 08/16/25 04:15 08/16/25 04:15 08/16/25 04:15 Room Air 08/16/25 04:00 08/16/25 03:51 Room Air 08/16/25 03:45 Room Air 08/16/25 03:42 Room Air 08/16/25 03:30 Room Air 08/16/25 03:15 Room Air 08/16/25 03:00 Room Air 08/16/25 02:48 Room Air 08/16/25 02:45 08/16/25 02:45 Room Air 08/16/25 02:37 Room Air 08/16/25 02:36 Room Air 08/16/25 02:30 Room Air 08/16/25 02:26 08/16/25 02:26 Room Air 08/16/25 02:21 Room Air 08/16/25 02:14 Room Air 0 08/16/25 02:11 Room Air 08/16/25 02:10 Room Air 08/16/25 02:09 Room Air 08/16/25 02:06 08/16/25 02:01 Room Air 08/16/25 01:53 Room Air Laboratory Results Abnormal Lab Results 08/16/25 08/16/25 08/16/25 02:09 04:07 09:00 WBC 10.89 H RBC 4.39 Hgb 13.1 Hct 38.4 MCV 87.5 MCH 29.8 MCHC 34.1 RDW Std Deviation 43.6 RDW Coeff of Trini 13.7 Plt Count 238 MPV 12.5 H Immature Gran % (Auto) 0.2 Neut % (Auto) 55.1 Lymph % (Auto) 33.7 Boyle % (Auto) 8.7 Eos % (Auto) 1.7 Baso % (Auto) 0.6 Neut # (Auto) 6.00 Lymph # (Auto) 3.67 H Boyle # (Auto) 0.95 H Eos # (Auto) 0.19 Baso # (Auto) 0.06 Immature Gran # (Auto) 0.02 Sodium 134 L Potassium 4.0 Chloride 100 Carbon Dioxide 22 Anion Gap 12 H BUN 34 H Creatinine 0.97 Est Cr Clr Drug Dosing 48.6 eGFR 61.70 BUN/Creatinine Ratio 35.1 H Glucose 161 H Calcium 9.5 Magnesium 1.6 L Total Bilirubin 0.3 AST 35 ALT 41 Alkaline Phosphatase 104 Troponin I High Sens 20.9 H 30.3 H C-Reactive Protein B-Natriuretic Peptide 603 H Total Protein 7.3 Albumin 4.4 Globulin 2.9 Albumin/Globulin Ratio 1.5 Lipase 35 TSH 3.474 Adenovirus (PCR) Not Detected B. pertussis DNA (PCR) Not Detected B.parapertussis DNA PCR Not Detected C. pneumoniae DNA (PCR) Not Detected Coronavirus OC43 (PCR) Not Detected Coronavirus HKU1 (PCR) Not Detected Coronavirus 229E (PCR) Not Detected SARS-CoV-2 (PCR) Not Detected Coronavirus NL63 (PCR) Not Detected Human Metapneumovir PCR Not Detected Influenza Type A (PCR) Not Detected Influenza Type B (PCR) Not Detected M. pneumoniae (PCR) Not Detected Parainfluenza 1 (PCR) Not Detected Parainfluenza 2 (PCR) Not Detected Parainfluenza 3 (PCR) Not Detected Parainfluenza 4 (PCR) Not Detected RSV (PCR) Not Detected Entero/Rhino (PCR) Not Detected 08/16/25 09:44 WBC RBC Hgb Hct MCV MCH MCHC RDW Std Deviation RDW Coeff of Trini Plt Count MPV Immature Gran % (Auto) Neut % (Auto) Lymph % (Auto) Boyle % (Auto) Eos % (Auto) Baso % (Auto) Neut # (Auto) Lymph # (Auto) Boyle # (Auto) Eos # (Auto) Baso # (Auto) Immature Gran # (Auto) Sodium 139 Potassium 3.7 Chloride 102 Carbon Dioxide 29 Anion Gap 8 BUN 25 H Creatinine 0.79 Est Cr Clr Drug Dosing 59.1 eGFR 78.93 BUN/Creatinine Ratio 31.6 H Glucose 114 H Calcium 9.3 Magnesium 2.2 Total Bilirubin AST ALT Alkaline Phosphatase Troponin I High Sens C-Reactive Protein < 0.50 B-Natriuretic Peptide Total Protein Albumin Globulin Albumin/Globulin Ratio Lipase TSH Adenovirus (PCR) B. pertussis DNA (PCR) B.parapertussis DNA PCR C. pneumoniae DNA (PCR) Coronavirus OC43 (PCR) Coronavirus HKU1 (PCR) Coronavirus 229E (PCR) SARS-CoV-2 (PCR) Coronavirus NL63 (PCR) Human Metapneumovir PCR Influenza Type A (PCR) Influenza Type B (PCR) M. pneumoniae (PCR) Parainfluenza 1 (PCR) Parainfluenza 2 (PCR) Parainfluenza 3 (PCR) Parainfluenza 4 (PCR) RSV (PCR) Entero/Rhino (PCR) Diagnostic Findings Echocardiogram 08/13/2025: Normal LV systolic function with ejection fraction 60 to 65%. Stage I diastolic dysfunction. Severe left ventricular hypertrophy with known apical variant cardiomyopathy. Left atrium mildly dilated PG Care Time/CCT Total # of Minutes Spent Total Time Spent with Patient: Total time spent is greater than 50% in coordination of care (as documented) at patient's floor/unit and/or counseling patient: Coding Level of Care Code 99531 SUB INP/OBS CARE 350MIN Diagnoses Atrial fibrillation with RVR I48.91 Apical variant hypertrophic cardiomyopathy I42.2
[2025-08-16 11:26] VITALS: BP 106/67; RESP 16; O2SAT 98
--- NOTE | 2025-08-16 11:33 | Discharge Summary ---
Discharge Summary Date of Service August 16, 2025 Principal Dx & Hospital Course #1 = Principal Diagnosis (1) Atrial fibrillation with RVR: (2) Hypomagnesemia: (3) Elevated troponin: (4) Cardiomyopathy: Plan Patient is a 75-year-old female with a past medical history of A-fib, apical variant hypertrophic cardiomyopathy, GERD, HLD. Patient was recently admitted from 08/12 to 08/13 for dyspnea on exertion thought to be an acute CHF exacerbation - she was evaluated by cardiology at this time and had an echocardiogram which showed EF 60 to 65%, grade 1 diastolic dysfunction, severe LVH consistent with known apical variant hypertrophic cardiomyopathy. She was started on p.o. Lasix and was reportedly transitioned from metoprolol tartrate to succinate. She now presented to the ED 08/16 due to heart palpitations found to be in A-fib with RVR. #A fib with RVR - symptomatic with heart palpitations. A-fib with RVR on EKG in ED and telemetry. With hypomagnesemia, otherwise electrolytes stable. TSH WNL. - Continue home Eliquis Received Lopressor 5 mg IV x 2 in ED however became hypotensive Continue Lopressor 5 Mg IV as needed for HR >120 with holding precautions Previously on metoprolol to tartrate 25 mg twice daily and was transitioned to metoprolol succinate 75 mg daily after recent discharge 08/13 Suspect patient needs evening coverage of rate control - Discussed with Dr. Walden, will discharge on additional dose of 25 mg PO daily metoprolol tartrate. Consult cardiology as per patient request for further medication adjustments Defer echocardiogram as patient just had 08/13 Patient to be discharged in AM in less than 6 hours from time of admission. #Hypomagnesemiamag 1.6, K+ 4.0, renal function stable. Likely 2/2 recent diuretic use. 2G IV magnesium ordered #Elevated troponin trop 20.9 -> 30.3. EKG without ischemic changes, A-fib RVR as above. Likely demand ischemia in the setting of A-fib with RVR Trend Trop every 6 hours EKG with chest pain as needed #Pre-DMcontinue metformin - no acute indication for SSI given glucose stable, renal function stable, no IV contrast use. #Diastolic CHF/apical variant hypertrophic cardiomyopathynot in acute exacerbation at time of admission. CXR without signs of congestion. Received Lasix 40 mg IV in the ED resume home dose of lasix at discharge. #ASHANTI from previous admission has resolved. #HLDcontinue statin Admission HPI Per Admitting Provider Patient is a 75-year-old female with a past medical history of A-fib, apical variant hypertrophic cardiomyopathy, GERD, HLD. Patient was recently admitted from 08/12 to 08/13 for dyspnea on exertion thought to be an acute CHF exacerbation and started on p.o. Lasix. She now presented to the ED 08/16 due to heart palpitations found to be in A-fib with RVR. Patient seen at bedside with her present. She stated at 1220 or 1230 this evening when she was sleeping she developed heart palpitations which has been pretty consistent since they began however is now improving but still present after Lopressor 5 Mg IV x 2 in the ED. She felt fine after she went home and Monday until this evening. She also endorses feeling like her "breathing was heavy" however denies any chest pain or shortness of breath in the ED. She did become hypotensive after Lopressor which resolved with some IV fluids and she denies any dizziness or lightheadedness. Patient stated she was diagnosed with A-fib 2 years ago and had a loop recorder. She was in A-fib when she was originally diagnosed, again in last September, and now today. This feels similar to previous episodes of A-fib. She stated when she was just here she was started on Lasix every other day which she did take 08/15 with her potassium supplement. She was previously on metoprolol to tartrate 25 mg twice daily and was transition to metoprolol succinate 75 mg daily during this recent admission. She denies any lower extremity edema or signs of CHF exacerbation. She stated she was down 9 pounds when she was discharged home however after her Thanksgiving meal yesterday was back up 5 pounds. She denies high sodium intake in her meals over the past few days have consisted of Pasta, salmon, 3 ladle's of [place] soup, chicken, rice, and pumpkin pie. She took all of her home medications this evening prior to arrival. She wishes to be full code. Patient is a snowbird and plans to go to [place] on Sunday 08/19. She has a cardiology appointment for 08/28 in [place]. She would like all records to be printed on discharge to be able to take them there. Previous records reviewed she was admitted from 08/12 to 08/13 due to dyspnea on exertion thought to be secondary to CHF exacerbation. She did have a troponin elevation which peaked at 55.3 again thought to be secondary to CHF exacerbation. She was evaluated by cardiology at this time and had an echocardiogram which showed EF 60 to 65%, grade 1 diastolic dysfunction, severe LVH consistent with known apical variant hypertrophic cardiomyopathy. Discharge Exam Constitutional WD/WN, vitals as above Neck trachea midline, no thyromegaly Respiratory normal respiratory effort, lungs clear to auscultation Cardiovascular RRR, no murmur, no edema Neurologic PERRL, EOMI, accommodation nl, no face palsy, no dysarthria Psychiatric A+Ox3, euthymic affect Discharge Plan Discharge Items Patient Disposition: Home - Self-Care Reason For Visit: SYMPTOMATIC A FIB Discharge Diagnosis: symptomatic Condition on Discharge: Fair Activity: Resume your previous activity Non-emergency contact: Primary Care Provider Call non-emergency contact if: you have any medication questions Follow-up/Referrals: Jorge A Schroeder MD [Primary Care Provider] - Diet: Carb Consistent or DM2 and Low Sodium (2gm) Addtl Attending Provider Instructions: We will be adding metoprolol tartrate at night to help control your heart rate in the evening. Please keep same followups as stated in your previous discharge. Pending Studies at Discharge: No Stand-Alone Forms: My [facility] [place], Smoking Cessation Medications and DC Order Prescriptions: New metoprolol tartrate 25 mg tablet 25 mg PO PM Qty: 30 0RF Continued famotidine 20 mg tablet 20 mg PO DAILY Qty: 90 3RF Eliquis 5 mg tablet 5 mg PO BID Qty: 180 3RF atorvastatin 10 mg tablet 10 mg PO DAILY Qty: 90 3RF levothyroxine 100 mcg tablet 100 mcg PO DAILY Qty: 90 3RF metformin 500 mg tablet 500 mg PO BID Qty: 180 3RF finasteride [Proscar] 5 mg tablet 5 mg PO DAILY Qty: 90 3RF ascorbic acid (vitamin C) [Vitamin C] 500 mg tablet 500 mg PO DAILY Patient Comments: 08/12- otc unable to verify mecobalamin (vitamin B12) 1,000 mcg tablet,disintegrating 1,000 mcg sublingual DAILY Patient Comments: 08/12- otc unable to verify Rx Instructions: place tablet under tongue and allow to dissolve for at least30 secs before swallowing coQ10 (ubiquinol) 100 mg capsule 100 mg PO DAILY Patient Comments: 08/12- otc unable to verify metoprolol succinate 25 mg Tablet Extended Release 24 Hr 75 mg PO QAM Qty: 30 0RF furosemide [Lasix] 40 mg tablet 40 mg PO Q OTHER DAY Qty: 30 0RF Rx Instructions: start on Monday potassium chloride 10 mEq capsule, extended release 10 meq PO Q OTHER DAY Qty: 30 0RF ergocalciferol (vitamin D2) [Vitamin D2] 1,250 mcg (50,000 unit) capsule 1,250 mcg PO WK Rx Instructions: FRIDAYS No Action magnesium chloride 64 mg tablet,delayed release (DR/EC) 64 mg PO DAILY Qty: 90 1RF Discharge Orders: Discharge Order (Routine); Ordered 08/16/25 Ordered By: Kelton Rose Admission Data Admit Date/Time: 08/16/25 05:41 Attending Provider: Kelton Rose Admit Provider: Hong Serna Primary Care Provider: Jorge A Schroeder Other Providers: Anibal Walden; Hong Serna Other Interventions: Discharge Summary Assessment (RN) Last Done: 08/16/25 11:35 Hospital Stay Data Consultations 08/16/25 04:52 ED Decision to Admit Stat 08/16/25 06:32 Consult Cardiology Routine Pending Results Patient Have Any Pending Studies at Discharge: No Discharge Instructions Given to Patient (Per Discharging Provider) We will be adding metoprolol tartrate at night to help control your heart rate in the evening. Please keep same followups as stated in your previous discharge. Total Time Total Time Spent Total Time Spent (In Minutes): 32 Spent over 30 minutes formulating discharge plan, evaluating patient, answering patient's questions and completing paperwork for discharge. Coding Level of Care Code 74107 INP/OBS DISCH >30 MIN Diagnoses Atrial fibrillation with RVR I48.91 Hypomagnesemia E83.42 Elevated troponin R79.89 Cardiomyopathy I42.9
[2025-08-16] MEDS ORDERED: METOPROLOL SUCC 50MG EXT REL TAB PO SCH (21:00)
== END 2025-08-16 13:25 | disposition home or self-care (01) | DRG 309 ==
LOC: SUATTDRO → ED 01:49 → SUATTDRO 05:41 → 2S 05:41 → INTOOBSV 05:41 → 2S 06:00